=== PATIENT | male | born 1970 | race Caucasian/White ===

== ENCOUNTER 2018-12-08 21:25 | Emergency (ER) | payer OTHER ==
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
[2018-12-08] MEDS ORDERED: Acetaminophen/HYDROcodone 325-10 MG Tab PO ONE (21:41)
[2018-12-08 22:22] LABS: ANION GAP 13.3; CHLORIDE,CL 109 mmol/L (101-111); SODIUM,NA 141 mmol/L (135-145)
== END 2018-12-08 23:00 | disposition home or self-care (01) ==
LOC: DL.ED 21:25
DX: S93.491A Sprain of other ligament of right ankle, initial encounter (principal); V23.4XXA Motorcycle driver injured in collision with car, pick-up truck or van in traffic accident, initial encounter
CPT/HCPCS: 36415; 73610; 80053; 85025; 99285; A9270

== ENCOUNTER 2019-04-29 23:34 | Emergency (ER) | payer OTHER ==
[2019-04-29] MEDS ORDERED: Albuterol 6.7 GM Inhaler INH ONE (23:35)
[2019-04-30 01:24] VITALS: BP 127/73; PULSE 82
--- NOTE | 2019-04-30 02:15 | EDM.PDOC ---
ED HPI GENERAL MEDICAL PROBLEM - General Chief Complaint: General Stated Complaint: FLU Time Seen by Provider: 04/30/19 02:12 Source of Information: Reports: Patient History Limitations: Reports: No Limitations - History of Present Illness INITIAL COMMENTS - FREE TEXT/NARRATIVE: Sx since . Generalized Pain Score (Numeric/FACES): 3 - Related Data Allergies Allergy/AdvReac Type Severity Reaction Status Date / Time No Known Allergies Allergy Verified 04/30/19 01:23 Home Meds: Home Meds . [No Known Home Meds] 05/10/16 [History] Past Medical History - Past Health History Medical/Surgical History: Denies Medical/Surgical History HEENT History: Reports: Hard of Hearing, Impaired Vision Other HEENT History: states near sighted, wears glasses at times Cardiovascular History: Reports: None Respiratory History: Reports: None Gastrointestinal History: Reports: None Genitourinary History: Reports: None Musculoskeletal History: Reports: None Neurological History: Reports: None Psychiatric History: Reports: None Endocrine/Metabolic History: Reports: None Other Endocrine/Metabolic History: has had hypoglycemia at times Hematologic History: Reports: None Immunologic History: Reports: None Oncologic (Cancer) History: Reports: None Dermatologic History: Reports: None - Infectious Disease History Infectious Disease History: Reports: None - Past Surgical History Head Surgeries/Procedures: Reports: None Social & Family History - Family History Family Medical History: Noncontributory - Tobacco Use Smoking Status *Q: Never Smoker Second Hand Smoke Exposure: No - Caffeine Use Caffeine Use: Reports: Coffee - Recreational Drug Use Recreational Drug Use: No - Living Situation & Occupation Living situation: Reports: with Significant Other Occupation: Employed ED ROS GENERAL - Review of Systems Review Of Systems: Comprehensive ROS is negative, except as noted in HPI. ED EXAM, GENERAL - Physical Exam Exam: See Below Exam Limited By: No Limitations General Appearance: Alert, WD/WN, No Apparent Distress Ears: Hearing Grossly Normal Throat/Mouth: Normal Voice, No Airway Compromise Head: Atraumatic Neck: Non-Tender, Full Range of Motion Respiratory/Chest: No Respiratory Distress, No Accessory Muscle Use, Rhonchi. No: Decreased Breath Sounds Cardiovascular: Regular Rate, Rhythm GI/Abdominal: Soft, Non-Tender Neurological: Alert, Oriented, Normal Cognition, Normal Gait, No Motor/Sensory Deficits Psychiatric: Normal Affect, Normal Mood Skin Exam: Warm, Dry, Normal Color Lymphatic: No Adenopathy Course - Vital Signs Last Recorded V/S: Last Vital Signs Temp 37.0 C 04/30/19 01:19 Pulse 82 04/30/19 01:19 Resp 20 04/30/19 01:19 BP 127/73 04/30/19 01:19 Pulse Ox 100 04/30/19 01:19 - Re-Assessments/Exams Free Text/Narrative Re-Assessment/Exam: 04/30/19 02:13 results discussed with pt. Departure - Departure Time of Disposition: 02:13 Disposition: Home, Self-Care 01 Condition: Good Clinical Impression: Bronchitis, Flu syndrome - Discharge Information Instructions: Acute Bronchitis, Adult, [id number] Additional Instructions: 1) sleep as much as possible 2) drink lots of hot liquids 3) take tylenol or motrin for fever and body aches 4) follow up at clinic rx togo; albuterol inhaler 1-2 puff qid prn Sepsis Event Note - Evaluation Sepsis Screening Result: No Definite Risk - Focused Exam Vital Signs: Vital Signs Temp Pulse Resp BP Pulse Ox 04/30/19 01:19 37.0 C 82 20 127/73 100 Date Exam was Performed: 04/30/19 Time Exam was Performed: 02:12
[2019-04-30] MEDS ORDERED: Albuterol 6.7 GM Inhaler INH ONE (02:17)
== END 2019-04-30 02:22 | disposition home or self-care (01) ==
LOC: DL.ED 23:34
DX: J11.1 Influenza due to unidentified influenza virus with other respiratory manifestations (principal); J40 Bronchitis, not specified as acute or chronic
CPT/HCPCS: 87804; 99283; A9270

== ENCOUNTER 2019-05-15 19:26 | Emergency (ER) | payer OTHER ==
[2019-05-15 19:38] VITALS: BP 123/83; PULSE 70
--- NOTE | 2019-05-15 19:56 | EDM.PDOC ---
ED HPI GENERAL MEDICAL PROBLEM - General Chief Complaint: Respiratory Problem Time Seen by Provider: 05/15/19 19:47 Source of Information: Reports: Patient History Limitations: Reports: No Limitations - History of Present Illness INITIAL COMMENTS - FREE TEXT/NARRATIVE: Cough x 2-3 weeks, Unsure if fever Cough dry now, previously loose. Some chills. No hx asthma, Appetite good. No nausea or vomiting. - Related Data Allergies Allergy/AdvReac Type Severity Reaction Status Date / Time No Known Allergies Allergy Verified 05/15/19 19:35 Home Meds: Home Meds . [No Known Home Meds] 05/10/16 [History] Past Medical History - Past Health History Medical/Surgical History: Denies Medical/Surgical History HEENT History: Reports: Hard of Hearing, Impaired Vision Other HEENT History: states near sighted, wears glasses at times Cardiovascular History: Reports: None Respiratory History: Reports: None Gastrointestinal History: Reports: None Genitourinary History: Reports: None Musculoskeletal History: Reports: None Neurological History: Reports: None Psychiatric History: Reports: None Endocrine/Metabolic History: Reports: None Other Endocrine/Metabolic History: has had hypoglycemia at times Hematologic History: Reports: None Immunologic History: Reports: None Oncologic (Cancer) History: Reports: None Dermatologic History: Reports: None - Infectious Disease History Infectious Disease History: Reports: None - Past Surgical History Head Surgeries/Procedures: Reports: None Social & Family History - Family History Family Medical History: Noncontributory - Tobacco Use Smoking Status *Q: Never Smoker Second Hand Smoke Exposure: No - Caffeine Use Caffeine Use: Reports: Coffee - Recreational Drug Use Recreational Drug Use: No - Living Situation & Occupation Living situation: Reports: with Significant Other Occupation: Employed ED ROS GENERAL - Review of Systems Review Of Systems: Comprehensive ROS is negative, except as noted in HPI. ED EXAM, GENERAL - Physical Exam Exam: See Below Exam Limited By: No Limitations General Appearance: Alert, No Apparent Distress Eye Exam: Bilateral Eye: EOMI Ears: Normal External Exam, Normal Canal, Hearing Grossly Normal, Normal TMs Nose: Normal Inspection Throat/Mouth: Normal Inspection, Normal Voice, No Airway Compromise Head: Atraumatic, Normocephalic Neck: Normal Inspection, Full Range of Motion. No: Lymphadenopathy (L), Lymphadenopathy (R) Respiratory/Chest: No Respiratory Distress, Lungs Clear, Normal Breath Sounds. No: Crackles, Rales, Rhonchi, Wheezing, Accessory Muscle Use Cardiovascular: Normal Peripheral Pulses, Regular Rate, Rhythm GI/Abdominal: Normal Bowel Sounds Back Exam: Normal Inspection, Full Range of Motion Extremities: Normal Range of Motion Neurological: Alert, Oriented, Normal Cognition Psychiatric: Normal Affect Skin Exam: Warm, Dry, Intact, Normal Color Course - Vital Signs Last Recorded V/S: Last Vital Signs Temp 98.5 F 05/15/19 19:32 Pulse 70 05/15/19 19:32 Resp 18 05/15/19 19:32 BP 123/83 05/15/19 19:32 Pulse Ox 98 05/15/19 19:32 - Orders/Labs/Meds Meds: Medications Discontinued Medications Generic Name Dose Route Start Last Admin Trade Name Yane PRN Reason Stop Dose Admin Benzonatate 200 mg 05/15/19 19:59 05/15/19 20:17 Tessalon Perles PO 05/15/19 20:00 200 mg ONETIME ONE Administration Departure - Departure Time of Disposition: 20:00 Disposition: Home, Self-Care 01 Condition: Good Clinical Impression: Bronchitis - Discharge Information *PRESCRIPTION DRUG MONITORING PROGRAM REVIEWED*: No *COPY OF PRESCRIPTION DRUG MONITORING REPORT IN PATIENT MANJU: No Instructions: Acute Bronchitis, Adult, [id number] Referrals: PCP,None [Primary Care Provider] - Forms: ED Department Discharge Additional Instructions: Muccinex per package label to aid in loosening secretions increase fluids tessalon perles 200mg every 8 hours as needed for cough follow up clinic 2 weeks if not improving. Sepsis Event Note - Evaluation Sepsis Screening Result: No Definite Risk - Focused Exam Date Exam was Performed: 05/17/19 Time Exam was Performed: 22:31
[2019-05-15] MEDS ORDERED: Benzonatate 100 MG Cap PO ONE (19:59)
== END 2019-05-15 20:18 | disposition home or self-care (01) ==
LOC: DL.ED 19:26
DX: J40 Bronchitis, not specified as acute or chronic (principal)
CPT/HCPCS: 99283; A9270

== ENCOUNTER 2019-06-22 10:26 | Emergency (ER) | payer OTHER ==
[2019-06-22] MEDS ORDERED: Acetaminophen/HYDROcodone 325-10 MG Tab PO ONE (10:49)
[2019-06-22] MEDS ORDERED: Albuterol/Ipratropium 3.0-0.5 MG/3 ML Neb Soln NEB ONE (10:50)
--- NOTE | 2019-06-22 10:57 | EDM.PDOC ---
<Skye Villanueva - Last Filed: 06/22/19 11:40> ED HPI GENERAL MEDICAL PROBLEM - General Chief Complaint: Respiratory Problem Stated Complaint: COUGHING/PULLED SOMETHING IN STOMACH Time Seen by Provider: 06/22/19 10:45 Source of Information: Reports: Patient History Limitations: Reports: No Limitations - History of Present Illness INITIAL COMMENTS - FREE TEXT/NARRATIVE: Patient presents to the ED by private vehicle with concerns of productive cough and recent episode of sharp right sided chest pain after an episode of severe coughing. The patient reports 2 months of cough and nasal drainage. He denies sore throat, fevers, chills, body aches. The patient has treated symptoms with OTC cold medications. He denies any history of cardiovascular or pulmonary disease. He denies a history of smoking. He admits to significant second hand smoke. Onset: Today Duration: Getting Worse Location: Reports: Chest (right sided) Quality: Reports: Sharp Improves with: Reports: None Worsens with: Reports: Breathing, Movement (coughing) Associated Symptoms: Reports: cough w sputum Treatments ACCOUNT SERVICES MANAGER: Reports: Other Medication(s) (OTC cold relief medications) Right Pain Score (Numeric/FACES): 9 - Related Data Allergies Allergy/AdvReac Type Severity Reaction Status Date / Time No Known Allergies Allergy Verified 06/22/19 10:39 Home Meds: Home Meds guaiFENesin [Robitussin] 20 ml PO Q6H 06/22/19 [History] Past Medical History - Past Health History Medical/Surgical History: Denies Medical/Surgical History HEENT History: Reports: Hard of Hearing, Impaired Vision Other HEENT History: states near sighted, wears glasses at times Cardiovascular History: Reports: None Respiratory History: Reports: None Gastrointestinal History: Reports: None Genitourinary History: Reports: None Musculoskeletal History: Reports: None Neurological History: Reports: None Psychiatric History: Reports: None Endocrine/Metabolic History: Reports: None Other Endocrine/Metabolic History: has had hypoglycemia at times Hematologic History: Reports: None Immunologic History: Reports: None Oncologic (Cancer) History: Reports: None Dermatologic History: Reports: None - Infectious Disease History Infectious Disease History: Reports: None - Past Surgical History Head Surgeries/Procedures: Reports: None Social & Family History - Family History Family Medical History: Noncontributory - Tobacco Use Smoking Status *Q: Never Smoker - Caffeine Use Caffeine Use: Reports: Coffee - Recreational Drug Use Recreational Drug Use: Yes Drug Use in Last 12 Months: No Other Recreational Drug Type: Hx smoking marijuana decades ago. (per pt) - Living Situation & Occupation Living situation: Reports: with Significant Other Occupation: Employed ED ROS GENERAL - Review of Systems Review Of Systems: See Below Constitutional: Denies: Fever, Chills Respiratory: Reports: Shortness of Breath, Wheezing, Cough, Sputum. Denies: Hemoptysis Cardiovascular: Reports: Chest Pain. Denies: Lightheadedness, Palpitations GI/Abdominal: Denies: Abdominal Pain, Constipation, Diarrhea, Hematemesis, Hematochezia, Nausea, Vomiting : Denies: Flank Pain Skin: Denies: Rash ED EXAM, GENERAL - Physical Exam Exam: See Below Exam Limited By: No Limitations General Appearance: Alert, Moderate Distress Ear Exam: Bilateral Ear: Auricle Normal, Canal Normal, TM normal Nose: Normal Inspection, Normal Mucosa Throat/Mouth: Normal Inspection Head: Atraumatic, Normocephalic Respiratory/Chest: Wheezing, Splinting, Other (tender to palpation over right lateral 7-10 ribs). No: Decreased Breath Sounds Cardiovascular: Normal Peripheral Pulses, Regular Rate, Rhythm, No Murmur Peripheral Pulses: 2+: Carotid (L), Carotid (R) GI/Abdominal: Normal Bowel Sounds, Soft, Non-Tender, No Distention Back Exam: No: CVA Tenderness (L), CVA Tenderness (R), Paraspinal Tenderness, Vertebral Tenderness Neurological: Alert, Oriented Psychiatric: Anxious Skin Exam: Warm, Dry, Intact Course - Vital Signs Last Recorded V/S: Last Vital Signs Temp 98.2 F 06/22/19 10:32 Pulse 70 06/22/19 10:59 Resp 28 H 06/22/19 10:32 BP 124/89 06/22/19 10:32 Pulse Ox 100 06/22/19 10:32 - Orders/Labs/Meds Orders: Active Orders 24 hr Category Date Time Status RT Aerosol Therapy [RC] ASDIRECTED Care 06/22/19 10:50 Active Chest 2V [CR] Stat Exams 06/22/19 10:49 Taken INFLUENZA A+B AG SCREEN [RM] Stat Lab 06/22/19 11:11 Ordered Labs: Laboratory Tests 06/22/19 06/22/19 06/22/19 Range/Units 11:02 11:02 11:02 WBC 7.6 (5.0-10.0) 10^3/uL RBC 4.61 (4.6-6.2) 10^6/uL Hgb 11.1 L (14.0-18.0) g/dL Hct 35.3 L (40.0-54.0) % MCV 76.6 L (80-100) fL MCH 24.1 L (27.0-34.0) pg MCHC 31.4 L (33.0-35.0) g/dL Plt Count 317 (150-450) 10^3/uL Neut % (Auto) 69.9 (42.2-75.2) % Lymph % (Auto) 15.1 L (20.5-50.1) % [place] % (Auto) 10.6 H (2-8) % Eos % (Auto) 4.0 H (1.0-3.0) % Baso % (Auto) 0.4 (0.0-1.0) % D-Dimer, Quantitative 239 (0-400) ng/mL Sodium 139 (135-145) mmol/L Potassium 3.9 (3.6-5.0) mmol/L Chloride 107 (101-111) mmol/L Carbon Dioxide 23.0 (21.0-31.0) mmol/L Anion Gap 12.9 BUN 8 (7-18) mg/dL Creatinine 0.7 (0.6-1.3) mg/dL Est Cr Clr Drug Dosing 150.05 mL/min Estimated GFR (MDRD) > 60 BUN/Creatinine Ratio 11.42 Glucose 85 (74-105) mg/dL Calcium 8.6 (8.4-10.2) mg/dl Total Bilirubin 0.4 (0.2-1.0) mg/dL AST 18 (10-42) IU/L ALT 12 (10-60) IU/L Alkaline Phosphatase 53 (42-121) IU/L Total Protein 6.8 (6.7-8.2) g/dl Albumin 3.4 (3.2-5.5) g/dl Globulin 3.4 Albumin/Globulin Ratio 1.00 Meds: Medications Discontinued Medications Generic Name Dose Route Start Last Admin Trade Name Freq PRN Reason Stop Dose Admin Hydrocodone Bitart/Acetaminophen 1 tab 06/22/19 10:49 06/22/19 11:09 [place] 325-10 Mg PO 06/22/19 10:50 1 tab ONETIME ONE Administration Albuterol/Ipratropium 3 ml 06/22/19 10:50 06/22/19 10:59 Duoneb 3.0-0.5 Mg/3 Ml NEB 06/22/19 10:51 3 ml ONETIME ONE Administration - Radiology Interpretation Free Text/Narrative:: Chest XR reveals no acute cardiopulmonary findings. Departure - Departure Time of Disposition: 11:41 Disposition: Home, Self-Care 01 Condition: Good Clinical Impression: Bronchitis, Costochondral chest pain Reactive airway disease with acute exacerbation Qualifiers: Asthma severity: moderate Asthma persistence: persistent Qualified Code(s): J45.41 - Moderate persistent asthma with (acute) exacerbation - Discharge Information *PRESCRIPTION DRUG MONITORING PROGRAM REVIEWED*: Not Applicable *COPY OF PRESCRIPTION DRUG MONITORING REPORT IN PATIENT MANJU: Not Applicable Instructions: Costochondritis, [id number], Metered Dose Inhaler (No Spacer Used), Upper Respiratory Infection, Adult, [id number] Forms: ED Department Discharge Additional Instructions: Rx: albuterol 2 puffs every 4 hours as needed for wheezing/cough Tessalon Perles as needed for cough Prednisone 1 tablet daily for 5 days. Take this medication prior to noon, and with food Zithromax, take as directed for 5 days Adequate rest, hydration Sepsis Event Note - Evaluation Sepsis Screening Result: No Definite Risk - Focused Exam Vital Signs: Vital Signs Temp Pulse Resp BP Pulse Ox 06/22/19 10:59 70 06/22/19 10:32 98.2 F 87 28 H 124/89 100 Date Exam was Performed: 06/22/19 Time Exam was Performed: 11:40 - My Orders Last 24 Hours: My Active Orders 06/22/19 10:49 Chest 2V [CR] Stat 06/22/19 10:50 RT Aerosol Therapy [RC] ASDIRECTED - Assessment/Plan Last 24 Hours: My Active Orders 06/22/19 10:49 Chest 2V [CR] Stat 06/22/19 10:50 RT Aerosol Therapy [RC] ASDIRECTED <Joaquín Alicia - Last Filed: 06/22/19 11:48> Course - Re-Assessments/Exams Free Text/Narrative Re-Assessment/Exam: 06/22/19 11:47 I personally performed or re-performed the physical examination and medical decision making. I have verified all student documentation or findings, including history, physical exam and/or medical decision making. Sepsis Event Note - Focused Exam Date Exam was Performed: 06/22/19 Time Exam was Performed: 11:47
[2019-06-22 11:28] LABS: ANION GAP 12.9; CHLORIDE,CL 107 mmol/L (101-111); SODIUM,NA 139 mmol/L (135-145)
[2019-06-22 11:56] VITALS: BP 113/75; PULSE 68
--- NOTE | 2019-06-22 12:13 | CR ---
EXAMINATION: Chest 2V SEX: Male AGE: 48 years CLINICAL HISTORY: 48-year-old male with cough and right chest pain. Comparison exam 17 March 2015. INTERPRETATION: 1. Chronic mild accentuation central lung markings. 2. No new lung mass, hilar lymphadenopathy or focal lobar pneumonia (compared to 17 March 2015). 3. Normal cardiac silhouette and bony thorax. 4. No pulmonary vascular congestion, cephalization of flow, alveolar edema or dependent pleural effusion. 5. No atelectasis/collapse. 6. No pneumothorax or pneumomediastinum. Midline tracheal bronchial airway unremarkable. No foreign bodies. CONCLUSION: Mild bronchial inflammation. No new cardiopulmonary abnormality since February 2015 films.
== END 2019-06-22 11:56 | disposition home or self-care (01) ==
LOC: DL.ED 10:26
DX: J45.41 Moderate persistent asthma with (acute) exacerbation (principal)
CPT/HCPCS: 36415; 71046; 80053; 85025; 85379; 94640; 99285; A9270; J7620-GY

== ENCOUNTER 2019-10-27 13:55 | Emergency (ER) | payer OTHER ==
[2019-10-27 14:25] VITALS: BP 129/82; PULSE 56
[2019-10-27] MEDS ORDERED: Sodium Chloride 0.9% 1,000 ML IV ONE (14:56)
--- NOTE | 2019-10-27 15:01 | EDM.PDOC ---
ED HPI GENERAL MEDICAL PROBLEM - General Chief Complaint: General Stated Complaint: VERTIGO, WEAKNESS, ARM PAIN 2 DAYS AGO Time Seen by Provider: 10/27/19 14:50 Source of Information: Reports: Patient History Limitations: Reports: No Limitations - History of Present Illness INITIAL COMMENTS - FREE TEXT/NARRATIVE: This 49 yo male patient reports to the ED with dizziness and malaise. The patient reports his symptoms started today and have continued throughout the day. The patient reports he has been eating and drinking, but has had a decreased appetite today. The patient reports increased dizziness when he gets up or walks around. The patient denies any nausea, vomiting, diarrhea, cough, abdominal pain, fever and chills. Onset: Today Duration: Constant Location: Reports: Generalized Quality: Reports: Other Severity: Moderate Improves with: Reports: None Worsens with: Reports: None Context: Reports: Other Associated Symptoms: Reports: Weakness - Related Data Allergies Allergy/AdvReac Type Severity Reaction Status Date / Time No Known Allergies Allergy Verified 10/27/19 14:17 Home Meds: Home Meds Acetaminophen [Tylenol] 2 mg PO ASDIRECTED PRN 10/27/19 [History] Ibuprofen 400 mg PO ASDIRECTED PRN 10/27/19 [History] Past Medical History - Past Health History Medical/Surgical History: Denies Medical/Surgical History HEENT History: Reports: Hard of Hearing, Impaired Vision Other HEENT History: states near sighted, wears glasses at times Cardiovascular History: Reports: None Respiratory History: Reports: None Gastrointestinal History: Reports: None Genitourinary History: Reports: None Musculoskeletal History: Reports: None Neurological History: Reports: None Psychiatric History: Reports: None Endocrine/Metabolic History: Reports: None Other Endocrine/Metabolic History: has had hypoglycemia at times Hematologic History: Reports: None Immunologic History: Reports: None Oncologic (Cancer) History: Reports: None Dermatologic History: Reports: None - Infectious Disease History Infectious Disease History: Reports: None - Past Surgical History Head Surgeries/Procedures: Reports: None Social & Family History - Family History Family Medical History: Noncontributory - Caffeine Use Caffeine Use: Reports: Coffee - Living Situation & Occupation Living situation: Reports: with Significant Other Occupation: Employed ED ROS GENERAL - Review of Systems Review Of Systems: Comprehensive ROS is negative, except as noted in HPI. ED EXAM, GENERAL - Physical Exam Exam: See Below Exam Limited By: No Limitations General Appearance: Alert, WD/WN, Mild Distress Eye Exam: Bilateral Eye: EOMI, Normal Inspection, PERRL Ears: Normal External Exam, Normal Canal, Hearing Grossly Normal, Normal TMs Nose: Normal Inspection, Normal Mucosa, No Blood Throat/Mouth: Normal Inspection, Normal Lips, Normal Teeth, Normal Gums, Normal Oropharynx, Normal Voice, No Airway Compromise Head: Atraumatic, Normocephalic Neck: Normal Inspection, Supple, Non-Tender, Full Range of Motion Respiratory/Chest: No Respiratory Distress, Lungs Clear, Normal Breath Sounds, No Accessory Muscle Use, Chest Non-Tender Cardiovascular: Normal Peripheral Pulses, Regular Rate, Rhythm, No Edema, No Gallop, No JVD, No Murmur, No Rub GI/Abdominal: Normal Bowel Sounds, Soft, Non-Tender, No Organomegaly, No Distention, No Abnormal Bruit, No Mass (Male) Exam: Deferred Rectal (Males) Exam: Deferred Back Exam: Normal Inspection, Full Range of Motion, NT Extremities: Normal Inspection, Normal Range of Motion, Non-Tender, Normal Capillary Refill, No Pedal Edema Neurological: Alert, Oriented, CN II-XII Intact, Normal Cognition, Normal Gait, Normal Reflexes, No Motor/Sensory Deficits Psychiatric: Normal Affect, Normal Mood Skin Exam: Warm, Dry, Intact, Normal Color, No Rash Lymphatic: No Adenopathy Course - Vital Signs Last Recorded V/S: Last Vital Signs Temp 36.6 C 10/27/19 14:23 Pulse 56 L 10/27/19 14:23 Resp 16 10/27/19 14:23 BP 129/82 10/27/19 14:23 Pulse Ox 98 10/27/19 14:23 - Orders/Labs/Meds Orders: Active Orders 24 hr Category Date Time Status EKG Documentation Completion [RC] STAT Care 10/27/19 14:57 Active Labs: Laboratory Tests 10/27/19 10/27/19 10/27/19 Range/Units 15:26 15:26 15:32 WBC 6.2 (5.0-10.0) 10^3/uL RBC 4.67 (4.6-6.2) 10^6/uL Hgb 12.2 L (14.0-18.0) g/dL Hct 37.6 L (40.0-54.0) % MCV 80.5 D (80-100) fL MCH 26.1 L (27.0-34.0) pg MCHC 32.4 L (33.0-35.0) g/dL Plt Count 240 D (150-450) 10^3/uL Neut % (Auto) 59.8 (42.2-75.2) % Lymph % (Auto) 22.3 (20.5-50.1) % [place] % (Auto) 11.2 H (2-8) % Eos % (Auto) 6.1 H (1.0-3.0) % Baso % (Auto) 0.6 (0.0-1.0) % Sodium (136-145) mmol/L Potassium (3.5-5.1) mmol/L Chloride (98-107) mmol/L Carbon Dioxide (21-32) mmol/L Anion Gap (7-13) mEq/L BUN (7-18) mg/dL Creatinine (0.70-1.30) mg/dL Est Cr Clr Drug Dosing mL/min Estimated GFR (MDRD) BUN/Creatinine Ratio (No establ ref range) Glucose (74-99) mg/dL Calcium (8.5-10.1) mg/dL Total Bilirubin (0.2-1.0) mg/dL AST (15-37) U/L ALT (16-63) U/L Alkaline Phosphatase (46-116) U/L Troponin I (0.000-0.056) ng/mL Total Protein (6.4-8.2) g/dL Albumin (3.4-5.0) g/dL Globulin Albumin/Globulin Ratio Urine Color Yellow (YELLOW) Urine Appearance Clear (CLEAR) Urine pH 6.5 (5.0-9.0) Ur Specific [place] 1.020 (1.005-1.030) Urine Protein Negative (NEGATIVE) Urine Glucose (UA) Negative (NEGATIVE) Urine Ketones Negative (NEGATIVE) Urine Occult Blood Negative (NEGATIVE) Urine Nitrite Negative (NEGATIVE) Urine Bilirubin Negative (NEGATIVE) Urine Urobilinogen 0.2 (0.2-1.0) mg/dL Ur Leukocyte Esterase Negative (NEGATIVE) Urine Opiates Screen Negative (NEGATIVE) Ur Oxycodone Screen Negative (NEGATIVE) Urine Methadone Screen Negative (NEGATIVE) Ur Barbiturates Screen Negative (NEGATIVE) U Tricyclic Antidepress Negative (NEGATIVE) Ur Phencyclidine Scrn Negative (NEGATIVE) Ur Amphetamine Screen Negative (NEGATIVE) U Methamphetamines Scrn Negative (NEGATIVE) Urine MDMA Screen Negative (NEGATIVE) U Benzodiazepines Scrn Negative (NEGATIVE) Urine Cocaine Screen Negative (NEGATIVE) U Marijuana (THC) Screen Negative (NEGATIVE) 10/27/19 Range/Units 15:32 WBC (5.0-10.0) 10^3/uL RBC (4.6-6.2) 10^6/uL Hgb (14.0-18.0) g/dL Hct (40.0-54.0) % MCV (80-100) fL MCH (27.0-34.0) pg MCHC (33.0-35.0) g/dL Plt Count (150-450) 10^3/uL Neut % (Auto) (42.2-75.2) % Lymph % (Auto) (20.5-50.1) % [place] % (Auto) (2-8) % Eos % (Auto) (1.0-3.0) % Baso % (Auto) (0.0-1.0) % Sodium 141 (136-145) mmol/L Potassium 3.6 (3.5-5.1) mmol/L Chloride 105 (98-107) mmol/L Carbon Dioxide 26 (21-32) mmol/L Anion Gap 13.6 H (7-13) mEq/L BUN 13 (7-18) mg/dL Creatinine 0.97 (0.70-1.30) mg/dL Est Cr Clr Drug Dosing 107.10 mL/min Estimated GFR (MDRD) > 60 BUN/Creatinine Ratio 13.4 (No establ ref range) Glucose 96 (74-99) mg/dL Calcium 8.1 L (8.5-10.1) mg/dL Total Bilirubin 0.2 (0.2-1.0) mg/dL AST 14 L (15-37) U/L ALT 24 (16-63) U/L Alkaline Phosphatase 66 (46-116) U/L Troponin I < 0.017 (0.000-0.056) ng/mL Total Protein 6.6 (6.4-8.2) g/dL Albumin 3.3 L (3.4-5.0) g/dL Globulin 3.3 Albumin/Globulin Ratio 1.00 Urine Color (YELLOW) Urine Appearance (CLEAR) Urine pH (5.0-9.0) Ur Specific [place] (1.005-1.030) Urine Protein (NEGATIVE) Urine Glucose (UA) (NEGATIVE) Urine Ketones (NEGATIVE) Urine Occult Blood (NEGATIVE) Urine Nitrite (NEGATIVE) Urine Bilirubin (NEGATIVE) Urine Urobilinogen (0.2-1.0) mg/dL Ur Leukocyte Esterase (NEGATIVE) Urine Opiates Screen (NEGATIVE) Ur Oxycodone Screen (NEGATIVE) Urine Methadone Screen (NEGATIVE) Ur Barbiturates Screen (NEGATIVE) U Tricyclic Antidepress (NEGATIVE) Ur Phencyclidine Scrn (NEGATIVE) Ur Amphetamine Screen (NEGATIVE) U Methamphetamines Scrn (NEGATIVE) Urine MDMA Screen (NEGATIVE) U Benzodiazepines Scrn (NEGATIVE) Urine Cocaine Screen (NEGATIVE) U Marijuana (THC) Screen (NEGATIVE) Meds: Medications Discontinued Medications Generic Name Dose Route Start Last Admin Trade Name Freq PRN Reason Stop Dose Admin Sodium Chloride 1,000 mls @ 999 mls/hr 10/27/19 14:56 10/27/19 15:26 Normal Saline IV 10/27/19 15:56 999 mls/hr .BOLUS ONE Administration Departure - Departure Time of Disposition: 16:51 Disposition: Home, Self-Care 01 Condition: Fair Clinical Impression: Dehydration - Discharge Information *PRESCRIPTION DRUG MONITORING PROGRAM REVIEWED*: Not Applicable *COPY OF PRESCRIPTION DRUG MONITORING REPORT IN PATIENT MANJU: Not Applicable Instructions: Dehydration, Adult, [id number] Forms: ED Department Discharge Care Plan Goals: The patient was advised of the examination, lab, and EKG results during the visit. The patient was given a liter of IV fluids while in the ED. The patient was encouraged to increase his oral fluid intake. If the patient has any additional symptoms or concerns, the patient should either return to the emergency department or visit his primary care facility. Sepsis Event Note (ED) - Evaluation Sepsis Screening Result: No Definite Risk - Focused Exam Vital Signs: Vital Signs Temp Pulse Resp BP Pulse Ox 10/27/19 14:23 36.6 C 56 L 16 129/82 98 - My Orders Last 24 Hours: My Active Orders 10/27/19 14:57 EKG Documentation Completion [RC] STAT - Assessment/Plan Last 24 Hours: My Active Orders 10/27/19 14:57 EKG Documentation Completion [RC] STAT
[2019-10-27 16:26] LABS: ANION GAP 13.6 mEq/L (7-13); CHLORIDE,CL 105 mmol/L (98-107); SODIUM,NA 141 mmol/L (136-145)
== END 2019-10-27 17:00 | disposition home or self-care (01) ==
LOC: DL.ED 13:55
DX: E86.0 Dehydration (principal)
CPT/HCPCS: 36415; 80053; 80305; 81003; 82962; 84484; 85025; 93005; 96360; 99285; J7030

== ENCOUNTER 2020-02-17 16:40 | Emergency (ER) | payer OTHER ==
[2020-02-17 17:00] VITALS: BP 123/67; PULSE 60
--- NOTE | 2020-02-17 17:38 | EDM.PDOC ---
ED HPI GENERAL MEDICAL PROBLEM - General Chief Complaint: Headache Stated Complaint: SEEING BLACK SPOTS, THROBBING PAIN IN HEAD ON RIGHT Time Seen by Provider: 02/17/20 17:38 Source of Information: Reports: Patient, Old Records, RN, RN Notes Reviewed History Limitations: Reports: No Limitations - History of Present Illness INITIAL COMMENTS - FREE TEXT/NARRATIVE: Pt presents to ER from home by POV with c/o waking with a "tension-like headache" this morning. He states he did not feel right most of the day, then the headache moved to the right side of his head and began throbbing. He began to feel a little nauseated, the light hurt his eyes, and he began to have black spots and bars in his vision on both eyes. Denies eye pain, temporal pain, vomiting, fever, or neck pain. He has history of migraines but usually does not have the spots. He rates the headache pain 7/10. Onset: Today Duration: Constant, Waxing/Waning Location: Reports: Head Quality: Reports: Ache, Same as Previous Episode, Throbbing Severity: Severe Improves with: Reports: None Worsens with: Reports: Other (seeing light) Associated Symptoms: Reports: No Other Symptoms Treatments [employer]ENTICE: Reports: Acetaminophen, NSAIDS - Related Data Allergies Allergy/AdvReac Type Severity Reaction Status Date / Time No Known Allergies Allergy Verified 02/17/20 16:57 Home Meds: Home Meds Acetaminophen [Tylenol] 2 mg PO ASDIRECTED PRN 10/27/19 [History] Ibuprofen 400 mg PO ASDIRECTED PRN 10/27/19 [History] Past Medical History HEENT History: Reports: Hard of Hearing, Impaired Vision Other HEENT History: states near sighted, wears glasses at times Cardiovascular History: Reports: None Respiratory History: Reports: None Gastrointestinal History: Reports: None Genitourinary History: Reports: None Musculoskeletal History: Reports: None Neurological History: Reports: Migraines Psychiatric History: Reports: None Endocrine/Metabolic History: Reports: None Other Endocrine/Metabolic History: has had hypoglycemia at times Hematologic History: Reports: None Immunologic History: Reports: None Oncologic (Cancer) History: Reports: None Dermatologic History: Reports: None - Infectious Disease History Infectious Disease History: Reports: None - Past Surgical History Head Surgeries/Procedures: Reports: None Social & Family History - Family History Family Medical History: Noncontributory - Tobacco Use Tobacco Use Status *Q: Never Tobacco User Second Hand Smoke Exposure: No - Caffeine Use Caffeine Use: Reports: Soda - Recreational Drug Use Recreational Drug Use: No - Living Situation & Occupation Living situation: Reports: with Significant Other Occupation: Employed ED ROS GENERAL - Review of Systems Review Of Systems: Comprehensive ROS is negative, except as noted in HPI. ED EXAM, GENERAL - Physical Exam Exam: See Below Exam Limited By: No Limitations General Appearance: Alert, WD/WN, No Apparent Distress Eye Exam: Bilateral Eye: EOMI, Normal Inspection, PERRL Nose: Normal Inspection, Normal Mucosa, No Blood Throat/Mouth: Normal Inspection, Normal Lips, Normal Teeth, Normal Gums, Normal Oropharynx, Normal Voice, No Airway Compromise Head: Atraumatic, Normocephalic Neck: Normal Inspection, Supple, Non-Tender, Full Range of Motion Respiratory/Chest: No Respiratory Distress, Lungs Clear, Normal Breath Sounds, No Accessory Muscle Use, Chest Non-Tender Cardiovascular: Regular Rate, Rhythm Neurological: Alert, Oriented, CN II-XII Intact, Normal Cognition, Normal Gait, No Motor/Sensory Deficits Psychiatric: Normal Affect, Normal Mood Skin Exam: Warm, Dry, Intact, Normal Color, No Rash Course - Vital Signs Last Recorded V/S: Last Vital Signs Temp 97.5 F 02/17/20 16:57 Pulse 60 02/17/20 16:57 Resp 16 02/17/20 16:57 BP 123/67 02/17/20 16:57 Pulse Ox 100 02/17/20 16:57 - Orders/Labs/Meds Labs: Laboratory Tests 02/17/20 02/17/20 Range/Units 17:57 17:57 WBC 7.2 (5.0-10.0) 10^3/uL RBC 4.84 (4.6-6.2) 10^6/uL Hgb 13.3 L (14.0-18.0) g/dL Hct 40.1 (40.0-54.0) % MCV 82.9 (80-100) fL MCH 27.5 (27.0-34.0) pg MCHC 33.2 (33.0-35.0) g/dL Plt Count 226 (150-450) 10^3/uL Neut % (Auto) 61.6 (42.2-75.2) % Lymph % (Auto) 24.1 (20.5-50.1) % [place] % (Auto) 11.1 H (2-8) % Eos % (Auto) 2.9 (1.0-3.0) % Baso % (Auto) 0.3 (0.0-1.0) % Sodium 140 (136-145) mmol/L Potassium 3.9 (3.5-5.1) mmol/L Chloride 105 (98-107) mmol/L Carbon Dioxide 24 (21-32) mmol/L Anion Gap 14.9 H (7-13) mEq/L BUN 16 (7-18) mg/dL Creatinine 1.00 (0.70-1.30) mg/dL Est Cr Clr Drug Dosing 103.89 mL/min Estimated GFR (MDRD) > 60 BUN/Creatinine Ratio 16.0 (No establ ref range) Glucose 91 (74-99) mg/dL Calcium 8.2 L (8.5-10.1) mg/dL Total Bilirubin 0.2 (0.2-1.0) mg/dL AST 19 (15-37) U/L ALT 18 (16-63) U/L Alkaline Phosphatase 72 (46-116) U/L C-Reactive Protein 0.4 (0.0-0.9) mg/dL Total Protein 6.7 (6.4-8.2) g/dL Albumin 3.2 L (3.4-5.0) g/dL Globulin 3.5 Albumin/Globulin Ratio 0.91 Meds: Medications Discontinued Medications Generic Name Dose Route Start Last Admin Trade Name Freq PRN Reason Stop Dose Admin Diphenhydramine HCl 25 mg 02/17/20 17:48 02/17/20 18:01 Benadryl PO 02/17/20 17:49 25 mg ONETIME ONE Administration Ketorolac Tromethamine 60 mg 02/17/20 17:47 02/17/20 18:00 Toradol IM 02/17/20 17:48 60 mg ONETIME ONE Administration Metoclopramide HCl 20 mg 02/17/20 17:47 02/17/20 18:01 Reglan PO 02/17/20 17:48 20 mg ONETIME ONE Administration Departure - Departure Time of Disposition: 18:30 Disposition: Home, Self-Care 01 Condition: Good Clinical Impression: Migraine syndrome - Discharge Information *PRESCRIPTION DRUG MONITORING PROGRAM REVIEWED*: Not Applicable *COPY OF PRESCRIPTION DRUG MONITORING REPORT IN PATIENT MANJU: Not Applicable Instructions: Migraine Headache Forms: ED Department Discharge Additional Instructions: Rx: Reglan 10mg Rx: Benadryl 25mg Follow up in clinic next week for recheck if headache or eye problems persist. Follow up in eye clinic for an eye exam in the nest one to two weeks. Sepsis Event Note (ED) - Evaluation Sepsis Screening Result: No Definite Risk - Focused Exam Vital Signs: Vital Signs Temp Pulse Resp BP Pulse Ox 02/17/20 16:57 97.5 F 60 16 123/67 100
[2020-02-17] MEDS ORDERED: Ketorolac 30 MG/ML SDV IM ONE (17:47)
[2020-02-17] MEDS ORDERED: Metoclopramide 10 MG Tab PO ONE (17:47)
[2020-02-17] MEDS ORDERED: diphenhydrAMINE 25 MG Tab PO ONE (17:48)
[2020-02-17 18:24] LABS: ANION GAP 14.9 mEq/L (7-13); CHLORIDE,CL 105 mmol/L (98-107); SODIUM,NA 140 mmol/L (136-145)
== END 2020-02-17 18:33 | disposition home or self-care (01) ==
LOC: DL.ED 16:40
DX: G43.909 Migraine, unspecified, not intractable, without status migrainosus (principal); Z79.899 Other long term (current) drug therapy
CPT/HCPCS: 36415; 80053; 85025; 86140; 96372; 99283; A9270; J1885

== ENCOUNTER 2020-03-24 19:13 | Emergency (ER) | payer OTHER ==
[2020-03-24 19:36] VITALS: PULSE 83
--- NOTE | 2020-03-24 19:53 | EDM.PDOC ---
ED HPI GENERAL MEDICAL PROBLEM - General Chief Complaint: General Stated Complaint: KIDNEYS STONES, SWOLLEN TESTICLES, PAIN Time Seen by Provider: 03/24/20 19:40 Source of Information: Reports: Patient History Limitations: Reports: No Limitations - History of Present Illness INITIAL COMMENTS - FREE TEXT/NARRATIVE: This 49 yo male patient reports to the ED with swelling of the patient's right testicle. The patient reports his symptoms started last Tuesday. The patient reports he was seen in the [facility] on Tuesday and advised that he has a kidney stone. The patient reports his symptoms have continued over the weekend and his pain has gotten worse. The patient reports he is and has not has any sexual encounters with people other than his . The patient does report he was from his about 1 month ago and she did have a sexual encounter with another individual. Onset Date: 03/18/20 Duration: Constant, Getting Worse Location: Reports: Other Quality: Reports: Other Severity: Moderate Improves with: Reports: None Worsens with: Reports: None Context: Reports: Other Associated Symptoms: Reports: No Other Symptoms Treatments PCU RN: Reports: NSAIDS Right Groin Pain Score (Numeric/FACES): 4 - Related Data Allergies Allergy/AdvReac Type Severity Reaction Status Date / Time No Known Allergies Allergy Verified 03/24/20 19:36 Past Medical History - Past Health History Medical/Surgical History: Denies Medical/Surgical History HEENT History: Reports: Hard of Hearing, Impaired Vision Other HEENT History: states near sighted, wears glasses at times Cardiovascular History: Reports: None Respiratory History: Reports: None Gastrointestinal History: Reports: None Genitourinary History: Reports: None Musculoskeletal History: Reports: None Neurological History: Reports: Migraines Psychiatric History: Reports: None Endocrine/Metabolic History: Reports: None Other Endocrine/Metabolic History: has had hypoglycemia at times Hematologic History: Reports: None Immunologic History: Reports: None Oncologic (Cancer) History: Reports: None Dermatologic History: Reports: None - Infectious Disease History Infectious Disease History: Reports: None - Past Surgical History Head Surgeries/Procedures: Reports: None Social & Family History - Family History Family Medical History: No Pertinent Family History - Caffeine Use Caffeine Use: Reports: Soda - Living Situation & Occupation Living situation: Reports: with Significant Other Occupation: Employed ED ROS GENERAL - Review of Systems Review Of Systems: Comprehensive ROS is negative, except as noted in HPI. ED EXAM, GENERAL - Physical Exam Exam: See Below Exam Limited By: No Limitations General Appearance: Alert, WD/WN, Moderate Distress Eye Exam: Bilateral Eye: EOMI, Normal Inspection, PERRL Ears: Normal External Exam, Normal Canal, Hearing Grossly Normal, Normal TMs Nose: Normal Inspection, Normal Mucosa, No Blood Throat/Mouth: Normal Inspection, Normal Lips, Normal Teeth, Normal Gums, Normal Oropharynx, Normal Voice, No Airway Compromise Head: Atraumatic, Normocephalic Neck: Normal Inspection, Supple, Non-Tender, Full Range of Motion Respiratory/Chest: No Respiratory Distress, Lungs Clear, Normal Breath Sounds, No Accessory Muscle Use, Chest Non-Tender Cardiovascular: Normal Peripheral Pulses, Regular Rate, Rhythm, No Edema, No Gallop, No JVD, No Murmur, No Rub GI/Abdominal: Normal Bowel Sounds, Soft, No Organomegaly, No Distention, No Abnormal Bruit, No Mass, Tender (Male) Exam: No Hernia, Scrotum Tenderness (R), Testicular Tenderness (R) Rectal (Males) Exam: Deferred Back Exam: Normal Inspection, Full Range of Motion, NT Extremities: Normal Inspection, Normal Range of Motion, Non-Tender, Normal Capillary Refill, No Pedal Edema Neurological: Alert, Oriented, CN II-XII Intact, Normal Cognition, Normal Gait, Normal Reflexes, No Motor/Sensory Deficits Psychiatric: Normal Affect, Normal Mood Skin Exam: Warm, Dry, Intact, Normal Color, No Rash Lymphatic: No Adenopathy Course - Vital Signs Last Recorded V/S: Last Vital Signs Temp 36.3 C 03/24/20 19:28 Pulse 83 03/24/20 19:28 Resp 14 03/24/20 19:28 BP 126/87 03/24/20 19:56 Pulse Ox 100 03/24/20 19:28 - Orders/Labs/Meds Orders: Active Orders 24 hr Category Date Time Status CHLAMYDIA AND GONORRHEA BY TMA Stat Lab 03/24/20 20:05 Received CULTURE URINE [RM] Urgent Lab 03/24/20 20:06 Received Labs: Laboratory Tests 03/24/20 03/24/20 03/24/20 Range/Units 19:50 19:50 20:06 WBC 8.3 (5.0-10.0) 10^3/uL RBC 4.45 L (4.6-6.2) 10^6/uL Hgb 12.6 L (14.0-18.0) g/dL Hct 37.5 L (40.0-54.0) % MCV 84.3 (80-100) fL MCH 28.3 (27.0-34.0) pg MCHC 33.6 (33.0-35.0) g/dL Plt Count 285 (150-450) 10^3/uL Neut % (Auto) 69.4 (42.2-75.2) % Lymph % (Auto) 18.2 L (20.5-50.1) % [place] % (Auto) 10.0 H (2-8) % Eos % (Auto) 1.9 (1.0-3.0) % Baso % (Auto) 0.5 (0.0-1.0) % Sodium 138 (136-145) mmol/L Potassium 3.6 (3.5-5.1) mmol/L Chloride 105 (98-107) mmol/L Carbon Dioxide 23 (21-32) mmol/L Anion Gap 13.6 H (7-13) mEq/L BUN 13 (7-18) mg/dL Creatinine 0.90 (0.70-1.30) mg/dL Est Cr Clr Drug Dosing 115.44 mL/min Estimated GFR (MDRD) > 60 BUN/Creatinine Ratio 14.4 (No establ ref range) Glucose 85 (74-99) mg/dL Calcium 8.4 L (8.5-10.1) mg/dL Total Bilirubin 0.2 (0.2-1.0) mg/dL AST 15 (15-37) U/L ALT 22 (16-63) U/L Alkaline Phosphatase 81 (46-116) U/L Total Protein 7.2 (6.4-8.2) g/dL Albumin 3.4 (3.4-5.0) g/dL Globulin 3.8 Albumin/Globulin Ratio 0.9 Urine Color Yellow (YELLOW) Urine Appearance Cloudy (CLEAR) Urine pH 6.0 (5.0-9.0) Ur Specific [place] >= 1.030 (1.005-1.030) Urine Protein 100 H (NEGATIVE) Urine Glucose (UA) Negative (NEGATIVE) Urine Ketones Negative (NEGATIVE) Urine Occult Blood Trace-intact H (NEGATIVE) Urine Nitrite Negative (NEGATIVE) Urine Bilirubin Negative (NEGATIVE) Urine Urobilinogen 0.2 (0.2-1.0) mg/dL Ur Leukocyte Esterase Trace H (NEGATIVE) Urine RBC 5-10 H /HPF Urine WBC 30-40 H (0-5/HPF) /HPF Ur Epithelial Cells Few (NOT SEEN) /HPF Amorphous Sediment Few (NOT SEEN) /HPF Urine Bacteria Few (0-FEW/HPF) /HPF Urine Mucus Few H (NOT SEEN) /LPF Meds: Medications Discontinued Medications Generic Name Dose Route Start Last Admin Trade Name Yane PRN Reason Stop Dose Admin Ceftriaxone Sodium 250 mg/ 0 mg 03/24/20 21:05 03/24/20 21:16 Lidocaine HCl 0.9 ml IM 03/24/20 21:06 1 inj ONETIME ONE Administration Departure - Departure Time of Disposition: 21:29 Disposition: Home, Self-Care 01 Condition: Fair Clinical Impression: Epididymitis, right - Discharge Information *PRESCRIPTION DRUG MONITORING PROGRAM REVIEWED*: Not Applicable *COPY OF PRESCRIPTION DRUG MONITORING REPORT IN PATIENT MANJU: Not Applicable Instructions: Epididymitis Forms: ED Department Discharge Care Plan Goals: The patient was advised of the examination, lab and ultrasound results during the visit. The patient was given an injection of Rocephin while in the ED and discharged with a prescription for Doxycycline (100 mg) #28 to take 1 by mouth 2 times per day for 14 days. The patient will be informed of the send out lab results when received. The patient was encouraged to attempt to elevate his scrotum, use cool packs to the area, rest and avoid heavy lifting until symptoms resolve. If the patient has any additional symptoms or concerns, the patient should either return to the emergency department or visit his primary care facility. Sepsis Event Note (ED) - Evaluation Sepsis Screening Result: No Definite Risk - Focused Exam Vital Signs: Vital Signs Temp Pulse Resp BP Pulse Ox 03/24/20 19:56 126/87 03/24/20 19:28 36.3 C 83 14 146/101 H 100 - My Orders Last 24 Hours: My Active Orders 03/24/20 20:05 CHLAMYDIA AND GONORRHEA BY TMA Stat 03/24/20 20:06 CULTURE URINE [RM] Urgent - Assessment/Plan Last 24 Hours: My Active Orders 03/24/20 20:05 CHLAMYDIA AND GONORRHEA BY TMA Stat 03/24/20 20:06 CULTURE URINE [RM] Urgent
[2020-03-24 19:57] VITALS: BP 126/87
[2020-03-24 20:23] LABS: ANION GAP 13.6 mEq/L (7-13); CHLORIDE,CL 105 mmol/L (98-107); SODIUM,NA 138 mmol/L (136-145)
[2020-03-24] MEDS ORDERED: cefTRIAXone 250 MG, Lidocaine 1% 0.9 ML IM ONE ×2 (21:05)
--- NOTE | 2020-03-24 21:22 | US ---
PROCEDURE INFORMATION: Exam: US Scrotum Exam date and time: 03/24/2020 8:28 PM Age: 49 years old Clinical indication: Scrotum pain; Additional info: Right testicular swelling and pain TECHNIQUE: Imaging protocol: Real-time ultrasound of the scrotum and contents with color Doppler and image documentation. COMPARISON: No relevant prior studies available. FINDINGS: Right testicle: The right testicle measures 5.2 x 3.7 x 3.0 cm and is normal appearance. There is no evidence of intratesticular mass. There is normal blood flow the right testicle. Left testicle: The left testicle measures 4.4 x 3.4 x 2.4 cm and is normal appearance. There is no evidence of intratesticular mass. There is normal blood flow in the left testicle. Epididymides: The right epididymis is enlarged and shows hypervascularity. The left epididymis is normal. Scrotum: There is a hypoechoic serpiginous structure without internal blood flow lateral to the right epididymis, suggesting a thrombosed varicocele. There is a trace right hydrocele. IMPRESSION: 1. Right epididymitis. 2. The testicles are symmetric and normal in appearance. There is no evidence of testicular torsion. 3. Probable thrombosed varicocele in the right hemiscrotum.
[2020-03-26 11:46] LABS: C.TRACHOMATIS BY TMA Positive (Negative); N.GONORRHOEAE BY TMA Negative (Negative)
== END 2020-03-24 21:33 | disposition home or self-care (01) ==
LOC: DL.ED 19:13
DX: N45.1 Epididymitis (principal)
CPT/HCPCS: 36415; 76870; 80053; 81001; 85025; 87086; 87491; 87591; 96372; 99283; 99284-25; J0696; J2001

== ENCOUNTER 2020-07-12 18:51 | Emergency (ER) | payer OTHER ==
[2020-07-12 19:21] VITALS: BP 163/98; PULSE 94
--- NOTE | 2020-07-12 20:01 | EDM.PDOC ---
ED HPI GENERAL MEDICAL PROBLEM - General Chief Complaint: ENT Problem Stated Complaint: EYE PROBLEM Time Seen by Provider: 07/12/20 19:30 Source of Information: Reports: Patient, RN, RN Notes Reviewed History Limitations: Reports: No Limitations - History of Present Illness INITIAL COMMENTS - FREE TEXT/NARRATIVE: Patient presents to the ED via personal vehicle with complaints of vision change in the left eye. The patient reports he first noted a glowing halo in his left eye peripheral vision when he blinks or looks too far to the left. He states this change in vision is transient and if he keeps his eyes open or looks straight ahead it dissipates entirely. He denies blurry vision, loss of vision, eye pain, eye irritation, eye drainage, or excessive tears. He states he has never experienced a change in vision similar to this in the past. He does attest to requiring eyeglasses, but he does not wear them. 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 - Related Data Allergies Allergy/AdvReac Type Severity Reaction Status Date / Time No Known Allergies Allergy Verified 07/12/20 19:21 Past Medical History - Past Health History Medical/Surgical History: Denies Medical/Surgical History HEENT History: Reports: Hard of Hearing, Impaired Vision Other HEENT History: states near sighted, wears glasses at times Cardiovascular History: Reports: None Respiratory History: Reports: None Gastrointestinal History: Reports: None Genitourinary History: Reports: None Musculoskeletal History: Reports: None Neurological History: Reports: Migraines Psychiatric History: Reports: None Endocrine/Metabolic History: Reports: None Other Endocrine/Metabolic History: has had hypoglycemia at times Hematologic History: Reports: None Immunologic History: Reports: None Oncologic (Cancer) History: Reports: None Dermatologic History: Reports: None - Infectious Disease History Infectious Disease History: Reports: None - Past Surgical History Head Surgeries/Procedures: Reports: None Social & Family History - Family History Family Medical History: No Pertinent Family History - Tobacco Use Tobacco Use Status *Q: Never Tobacco User Second Hand Smoke Exposure: No - Caffeine Use Caffeine Use: Reports: Soda, Tea - Alcohol Use Date of Last Drink: 07/05/20 - Recreational Drug Use Recreational Drug Use: No - Living Situation & Occupation Living situation: Reports: with Significant Other Occupation: Employed ED ROS ENT - Review of Systems Review Of Systems: Comprehensive ROS is negative, except as noted in HPI. ED EXAM, ENT - Physical Exam Exam: See Below Exam Limited By: No Limitations General Appearance: Alert, No Apparent Distress Eye Exam: Bilateral Eye: EOMI, Normal Inspection, PERRL Ears: Normal External Exam, Normal Canal, Hearing Grossly Normal, Normal TMs Nose: Normal Inspection, Normal Mucousa, No Blood Mouth/Throat: Normal Inspection, Normal Gums, Normal Lips, Normal Oropharynx, Normal Teeth Head: Atraumatic, Normocephalic Neck: Normal Inspection, Supple, Non-Tender, Full Range of Motion. No: Lymphadenopathy (L), Lymphadenopathy (R) Respiratory/Chest: No Respiratory Distress, Lungs Clear, Normal Breath Sounds, No Accessory Muscle Use, Chest Non-Tender Cardiovascular: Normal Peripheral Pulses, Regular Rate, Rhythm, No Edema, No Gallop, No JVD, No Murmur, No Rub Back: Normal Inspection, Full Range of Motion Neurological: Alert, Oriented, CN II-XII Intact, Normal Cognition, Normal Gait, No Motor/Sensory Deficits Psychiatric: Normal Affect, Normal Mood Skin: Warm, Dry, Intact, Normal Color, No Rash. No: Ecchymosis, Jaundice, Mottled, Pallor, Petechiae Course - Vital Signs Last Recorded V/S: Last Vital Signs Temp 96.8 F L 07/12/20 18:55 Pulse 94 07/12/20 18:55 Resp 18 07/12/20 18:55 BP 163/98 H 07/12/20 18:55 Pulse Ox 100 07/12/20 18:55 - Re-Assessments/Exams Free Text/Narrative Re-Assessment/Exam: 07/12/20 Visual Acuity 20/50, bilaterally Discussed findings of examination; normal movement and PERRLA, no nystagmus. Discussed the need to revisit the eye doctor, or order prescription eyeglasses from most recent prescription, as his eye is likely fatigued. Patient verbalized understanding and agreement with the plan of care. Departure - Departure Time of Disposition: 19:58 Disposition: Home, Self-Care 01 Condition: Good Clinical Impression: Change in vision - Discharge Information *PRESCRIPTION DRUG MONITORING PROGRAM REVIEWED*: Not Applicable *COPY OF PRESCRIPTION DRUG MONITORING REPORT IN PATIENT MANJU: Not Applicable Instructions: Visual Disturbances Forms: ED Department Discharge Additional Instructions: 1.) Follow up with your eye doctor early next week; your vision via eye chart is 20/50 in both eyes which would require daily vision correction via eyeglasses. 2.) Your safety glasses may provide some relief of this symptom, you may consider wearing them while you are waiting to get into the landscape specialist if the vision change bothers you. Sepsis Event Note (ED) - Evaluation Sepsis Screening Result: No Definite Risk - Focused Exam Vital Signs: Vital Signs Temp Pulse Resp BP Pulse Ox 07/12/20 18:55 96.8 F L 94 18 163/98 H 100
== END 2020-07-12 20:05 | disposition home or self-care (01) ==
LOC: DL.ED 18:51
DX: H53.9 Unspecified visual disturbance (principal)
CPT/HCPCS: 99282; 99283

== ENCOUNTER 2020-08-13 12:04 | Emergency (ER) | payer OTHER ==
[2020-08-13 12:19] VITALS: BP 124/87; PULSE 84
[2020-08-13] MEDS ORDERED: Sodium Chloride 0.9% 1,000 ML IV ONE (12:43)
[2020-08-13] MEDS ORDERED: Ketorolac 30 MG/ML SDV IVPUSH ONE (12:43)
--- NOTE | 2020-08-13 12:50 | EDM.PDOC ---
ED HPI GENERAL MEDICAL PROBLEM - General Chief Complaint: Back Pain or Injury Stated Complaint: LOWER BACK PAIN Time Seen by Provider: 08/13/20 12:30 Source of Information: Reports: Patient, Old Records, RN, RN Notes Reviewed History Limitations: Reports: No Limitations - History of Present Illness INITIAL COMMENTS - FREE TEXT/NARRATIVE: Evens is a 50 y/o male who presents to the ED via personal vehicle for complaints of right low back pain. The patient reports that his back pain began approximately three days ago following abdominal pain and nausea; he states the abdominal pain and nausea subsided but the back pain persisted. He characterizes the pain as a dull ache that waxes and wanes. He reports that the pain is localized to the right flank and does not radiate. He denies recent injury, strain, or falls. The patient does attest to a history of kidney stone in March 2020. He denies fever, shaking chills, shortness of breath, vomiting, dysuria, hematuria, frequency, saddle paraesthesia, incontinence, BLE weakness, constipation, or diarrhea. The patient denies tobacco, alcohol, or recreational drug use. - Related Data Allergies Allergy/AdvReac Type Severity Reaction Status Date / Time No Known Allergies Allergy Verified 08/13/20 12:12 Past Medical History - Past Health History Medical/Surgical History: Denies Medical/Surgical History HEENT History: Reports: Hard of Hearing, Impaired Vision Other HEENT History: states near sighted, wears glasses at times Cardiovascular History: Reports: None Respiratory History: Reports: None Gastrointestinal History: Reports: None Genitourinary History: Reports: None Musculoskeletal History: Reports: None Neurological History: Reports: Migraines Psychiatric History: Reports: None Endocrine/Metabolic History: Reports: None Other Endocrine/Metabolic History: has had hypoglycemia at times Hematologic History: Reports: None Immunologic History: Reports: None Oncologic (Cancer) History: Reports: None Dermatologic History: Reports: None - Infectious Disease History Infectious Disease History: Reports: None - Past Surgical History Head Surgeries/Procedures: Reports: None Social & Family History - Family History Family Medical History: No Pertinent Family History - Tobacco Use Tobacco Use Status *Q: Never Tobacco User - Caffeine Use Caffeine Use: Reports: Soda - Recreational Drug Use Recreational Drug Use: No - Living Situation & Occupation Living situation: Reports: with Significant Other Occupation: Employed ED ROS GENERAL - Review of Systems Review Of Systems: Comprehensive ROS is negative, except as noted in HPI. ED EXAM,LOWER BACK PAIN/INJURY - Physical Exam Exam: See Below Exam Limited By: No Limitations General Appearance: Alert, Mild Distress (Low back pain) Eye Exam: Bilateral Eye: EOMI, Normal Inspection, PERRL (3mm) Throat/Mouth: Normal Inspection, Normal Voice, No Airway Compromise Head: Atraumatic, Normocephalic Neck: Normal Inspection, Supple, Non-Tender, Full Range of Motion Respiratory/Chest: No Respiratory Distress, Lungs Clear, Normal Breath Sounds, No Accessory Muscle Use, Chest Non-Tender Cardiovascular: Normal Peripheral Pulses, Regular Rate, Rhythm, No Edema, No Gallop, No JVD, No Murmur, No Rub GI/Abdominal: Normal Bowel Sounds, Soft, Non-Tender, No Distention, No Mass, Pelvis Stable. No: Guarding, Rigid, Rebound (Male) Exam: Deferred Rectal (Males) Exam: Deferred Back Exam: CVA Tenderness (L), CVA Tenderness (R), Muscle Spasm (To right with palpation ). No: Vertebral Tenderness Extremities: Normal Inspection, Normal Range of Motion, Non-Tender, No Pedal Edema, Normal Capillary Refill Neurological: Alert, Normal Mood/Affect, Normal Dorsiflexion, CN II-XII Intact, Normal Plantar Flexion, Normal Gait, Normal Reflexes, No Motor/Sensory Deficits, Oriented x 3 Psychiatric: Normal Affect, Normal Mood Skin Exam: Warm, Dry, Intact, Normal Color, No Rash. No: Ecchymosis, Erythema, Jaundice, Mottled, Pallor, Petechiae Course - Vital Signs Last Recorded V/S: Last Vital Signs Temp 96.4 F L 08/13/20 12:12 Pulse 84 08/13/20 12:12 Resp 18 08/13/20 12:12 BP 124/87 08/13/20 12:12 Pulse Ox 100 08/13/20 12:12 - Orders/Labs/Meds Labs: Laboratory Tests 08/13/20 08/13/20 08/13/20 Range/Units 12:59 12:59 12:59 WBC 5.5 (5.0-10.0) 10^3/uL RBC 5.10 (4.6-6.2) 10^6/uL Hgb 14.0 (14.0-18.0) g/dL Hct 42.3 (40.0-54.0) % MCV 82.9 (80-100) fL MCH 27.5 (27.0-34.0) pg MCHC 33.1 (33.0-35.0) g/dL Plt Count 270 (150-450) 10^3/uL Neut % (Auto) 66.2 (42.2-75.2) % Lymph % (Auto) 21.0 (20.5-50.1) % [place] % (Auto) 9.9 H (2-8) % Eos % (Auto) 2.4 (1.0-3.0) % Baso % (Auto) 0.5 (0.0-1.0) % Sodium 136 (136-145) mmol/L Potassium 3.9 (3.5-5.1) mmol/L Chloride 103 (98-107) mmol/L Carbon Dioxide 24 (21-32) mmol/L Anion Gap 12.9 (7-13) mEq/L BUN 15 (7-18) mg/dL Creatinine 1.06 (0.70-1.30) mg/dL Est Cr Clr Drug Dosing 96.93 mL/min Estimated GFR (MDRD) > 60 BUN/Creatinine Ratio 14.2 (No establ ref range) Glucose 107 H (70-99) mg/dL Lactic Acid 0.9 (0.4-2.0) mmol/L Calcium 8.1 L (8.5-10.1) mg/dL Magnesium 1.8 (1.8-2.4) mg/dL Total Bilirubin 0.4 (0.2-1.0) mg/dL AST 19 (15-37) U/L ALT 27 (16-63) U/L Alkaline Phosphatase 67 (46-116) U/L Total Protein 6.7 (6.4-8.2) g/dL Albumin 3.4 (3.4-5.0) g/dL Globulin 3.3 Albumin/Globulin Ratio 1.0 Urine Color (YELLOW) Urine Appearance (CLEAR) Urine pH (5.0-9.0) Ur Specific [place] (1.005-1.030) Urine Protein (NEGATIVE) Urine Glucose (UA) (NEGATIVE) Urine Ketones (NEGATIVE) Urine Occult Blood (NEGATIVE) Urine Nitrite (NEGATIVE) Urine Bilirubin (NEGATIVE) Urine Urobilinogen (0.2-1.0) mg/dL Ur Leukocyte Esterase (NEGATIVE) 08/13/20 Range/Units 13:10 WBC (5.0-10.0) 10^3/uL RBC (4.6-6.2) 10^6/uL Hgb (14.0-18.0) g/dL Hct (40.0-54.0) % MCV (80-100) fL MCH (27.0-34.0) pg MCHC (33.0-35.0) g/dL Plt Count (150-450) 10^3/uL Neut % (Auto) (42.2-75.2) % Lymph % (Auto) (20.5-50.1) % [place] % (Auto) (2-8) % Eos % (Auto) (1.0-3.0) % Baso % (Auto) (0.0-1.0) % Sodium (136-145) mmol/L Potassium (3.5-5.1) mmol/L Chloride (98-107) mmol/L Carbon Dioxide (21-32) mmol/L Anion Gap (7-13) mEq/L BUN (7-18) mg/dL Creatinine (0.70-1.30) mg/dL Est Cr Clr Drug Dosing mL/min Estimated GFR (MDRD) BUN/Creatinine Ratio (No establ ref range) Glucose (70-99) mg/dL Lactic Acid (0.4-2.0) mmol/L Calcium (8.5-10.1) mg/dL Magnesium (1.8-2.4) mg/dL Total Bilirubin (0.2-1.0) mg/dL AST (15-37) U/L ALT (16-63) U/L Alkaline Phosphatase (46-116) U/L Total Protein (6.4-8.2) g/dL Albumin (3.4-5.0) g/dL Globulin Albumin/Globulin Ratio Urine Color Yellow (YELLOW) Urine Appearance Clear (CLEAR) Urine pH 6.5 (5.0-9.0) Ur Specific [place] 1.015 (1.005-1.030) Urine Protein Negative (NEGATIVE) Urine Glucose (UA) Negative (NEGATIVE) Urine Ketones Negative (NEGATIVE) Urine Occult Blood Negative (NEGATIVE) Urine Nitrite Negative (NEGATIVE) Urine Bilirubin Negative (NEGATIVE) Urine Urobilinogen 0.2 (0.2-1.0) mg/dL Ur Leukocyte Esterase Negative (NEGATIVE) Meds: Medications Discontinued Medications Generic Name Dose Route Start Last Admin Trade Name Yane PRN Reason Stop Dose Admin Sodium Chloride 1,000 mls @ 999 mls/hr 08/13/20 12:43 08/13/20 13:08 Normal Saline IV 08/13/20 13:43 999 mls/hr .BOLUS ONE Administration Ketorolac Tromethamine 30 mg 08/13/20 12:43 08/13/20 13:08 Ketorolac 30 Mg/Ml Sdv IVPUSH 08/13/20 12:44 30 mg ONETIME ONE Administration Orphenadrine Citrate 60 mg 08/13/20 13:55 08/13/20 14:03 Orphenadrine 60 Mg/2 Ml Inj IM 08/13/20 13:56 60 mg ONETIME ONE Administration - Re-Assessments/Exams Free Text/Narrative Re-Assessment/Exam: 08/13/20 Given bilateral CVA tenderness will assess for renal stones via UA. Will treat prophylactically with NS 1L bolus and Ketorolac 30mg IV while UA pending. UA unremarkable for evidence of infection or occult blood. Will refrain from imaging given WNL UA. Will treat muscle spasm with orphenadrine. Discussed findings of examination and lab work with patient. Discussed supportive cares for muscle spasm as well as red flag signs and symptoms which would warrant reev aluation. Patient verbalized understanding and agreement with the plan of care. Departure - Departure Time of Disposition: 13:57 Disposition: Home, Self-Care 01 Condition: Good Clinical Impression: Spasm of muscle of lower back - Discharge Information *PRESCRIPTION DRUG MONITORING PROGRAM REVIEWED*: Not Applicable *COPY OF PRESCRIPTION DRUG MONITORING REPORT IN PATIENT MANJU: Not Applicable Instructions: Muscle Cramps and Spasms Referrals: PCP,None [Primary Care Provider] - Forms: ED Department Discharge Additional Instructions: Rx: orphenadrine 1.) You may apply heat to your lower back muscles, as spasm persists. 2.) You may continue taking Aleve, as pain persist. You may also take acetaminophen (Tylenol) 650mg every six hours, as pain persists. 3.) Drink plenty of water to stay hydrated. 4.) Do not operate a car while taking orphenadrine. Sepsis Event Note (ED) - Evaluation Sepsis Screening Result: No Definite Risk
[2020-08-13 13:23] LABS: ANION GAP 12.9 mEq/L (7-13); CHLORIDE,CL 103 mmol/L (98-107); SODIUM,NA 136 mmol/L (136-145)
[2020-08-13] MEDS ORDERED: Orphenadrine 60 MG/2 ML Inj IM ONE (13:55)
== END 2020-08-13 14:23 | disposition home or self-care (01) ==
LOC: DL.ED 12:04
DX: M62.830 Muscle spasm of back (principal)
CPT/HCPCS: 36415; 80053; 81003; 83605; 83735; 85025; 96372; 96374; 99283; J1885; J2360; J7030

== ENCOUNTER 2020-09-29 08:56 | Emergency (ER) | payer OTHER ==
[2020-09-29 09:37] VITALS: BP 122/81; PULSE 76
--- NOTE | 2020-09-29 12:16 | CR ---
EXAMINATION: Cervical Spine 3V SEX: Male AGE: 50 years CLINICAL HISTORY: 50-year-old male complaining of shoulder pain AP, lateral and swimmer's views of the cervical spine confirm chronic mild cervical disc degeneration (interspace narrowing with hypertrophic marginal/uncinate spur formation) C5-6 level. No sign of pathologic skeletal lesion, prevertebral soft tissue swelling, cervical fracture or spondylolisthesis. No cervical rib anomalies. Lung apices clear. Discussion: Unenhanced MRI cervical spine should be considered as the next best least invasive diagnostic modality for this patient with presumed "radiculopathy".
--- NOTE | 2020-09-29 12:17 | CR ---
EXAMINATION: Shoulder Comp Rt SEX: Male AGE: 50 years CLINICAL HISTORY: 50-year-old male right shoulder pain. Interpretation: Mild reactive sclerosis ipsilateral acromioclavicular joint Hill-Sachs notch like deformity lateral aspect of the humeral head. Homogeneous normal bone density for age and gender. Right lung apex clear. No sign of pathologic skeletal lesion, juxta-articular rotator cuff tendon calcifications, right shoulder fracture or dislocation. (No acromioclavicular separation). No foreign bodies. CONCLUSION: Minimal arthritic changes right shoulder.
--- NOTE | 2020-09-29 12:18 | CR ---
EXAMINATION: Thoracic Spine 2V SEX: Male AGE: 50 years CLINICAL HISTORY: 50-year-old male with right shoulder and thoracic pain ("C5-6 disc degeneration") Interpretation: Spondylosis (small spurs particularly lower thoracic spine). Normal density height and alignment of the thoracic vertebra. No sign of pathologic skeletal lesion, thoracic fracture, spondylolisthesis or abnormal intervertebral disc space narrowing. Posterior ribs unremarkable. Normal mediastinal width and lung weeks are clear. CONCLUSION: Mild arthritic changes particularly lower thoracic spine.
--- NOTE | 2020-09-29 12:30 | EDM.PDOC ---
ED HPI GENERAL MEDICAL PROBLEM - General Chief Complaint: Upper Extremity Injury/Pain Stated Complaint: [id number] RIGHT SHOULDER PAIN Time Seen by Provider: 09/29/20 10:58 Source of Information: Reports: Patient, RN, RN Notes Reviewed History Limitations: Reports: No Limitations - History of Present Illness INITIAL COMMENTS - FREE TEXT/NARRATIVE: Patient is a 50-year-old male who presents to ER with complint of right shoulder pain. States he woke up with the pain--denies fall or injury. States worsened as he tried to work. Rates pain 3-4/10 affecting back 3-4/10. Reports inflamed shoulder blade greater than 10 years ago. Onset: Today Duration: Constant Location: Reports: Upper Extremity, Right Quality: Reports: Ache Severity: Mild Improves with: Reports: None Worsens with: Reports: None Context: Reports: Activity Right Shoulder Pain Score (Numeric/FACES): 4 - Related Data Allergies Allergy/AdvReac Type Severity Reaction Status Date / Time No Known Allergies Allergy Verified 09/29/20 09:35 Home Meds: Home Meds . [No Known Home Meds] 09/29/20 [History] Past Medical History - Past Health History Medical/Surgical History: Denies Medical/Surgical History HEENT History: Reports: Hard of Hearing, Impaired Vision Other HEENT History: states near sighted, wears glasses at times Cardiovascular History: Reports: None Respiratory History: Reports: None Gastrointestinal History: Reports: None Genitourinary History: Reports: None Musculoskeletal History: Reports: None Neurological History: Reports: Migraines Psychiatric History: Reports: None Endocrine/Metabolic History: Reports: None Other Endocrine/Metabolic History: has had hypoglycemia at times Hematologic History: Reports: None Immunologic History: Reports: None Oncologic (Cancer) History: Reports: None Dermatologic History: Reports: None - Infectious Disease History Infectious Disease History: Reports: None - Past Surgical History Head Surgeries/Procedures: Reports: None Social & Family History - Family History Family Medical History: No Pertinent Family History - Tobacco Use Tobacco Use Status *Q: Unknown Ever Used Tobacco - Caffeine Use Caffeine Use: Reports: Soda - Recreational Drug Use Recreational Drug Use: No - Living Situation & Occupation Living situation: Reports: with Significant Other Occupation: Employed Review of Systems - Review of Systems Review Of Systems: Comprehensive ROS is negative, except as noted in HPI. ED EXAM, GENERAL - Physical Exam Exam: See Below Exam Limited By: No Limitations General Appearance: Mild Distress Eye Exam: Bilateral Eye: EOMI, Normal Inspection, PERRL Ears: Normal External Exam, Normal Canal, Hearing Grossly Normal, Normal TMs Nose: Normal Inspection, Normal Mucosa, No Blood Throat/Mouth: Normal Inspection, Normal Lips, Normal Teeth, Normal Gums, Normal Oropharynx, Normal Voice, No Airway Compromise Head: Atraumatic, Normocephalic Neck: Normal Inspection, Supple, Non-Tender, Full Range of Motion Respiratory/Chest: No Respiratory Distress, Lungs Clear, Normal Breath Sounds, No Accessory Muscle Use, Chest Non-Tender Cardiovascular: Normal Peripheral Pulses, Regular Rate, Rhythm, No Edema, No Gallop, No JVD, No Murmur, No Rub GI/Abdominal: Normal Bowel Sounds, Soft, Non-Tender, No Organomegaly, No Distention, No Abnormal Bruit, No Mass (Male) Exam: Deferred Rectal (Males) Exam: Deferred Back Exam: Normal Inspection, Full Range of Motion, NT Extremities: Other (tender thoracic midline/lateral with decreased range of motion right shoulder) Neurological: Alert, Oriented, CN II-XII Intact, Normal Cognition, Normal Gait, Normal Reflexes, No Motor/Sensory Deficits Psychiatric: Normal Affect, Normal Mood Skin Exam: Warm, Dry, Intact, Normal Color, No Rash Lymphatic: No Adenopathy ED TRAUMA EXTREMITY PROCEDURES - Splinting Right Upper Extremity Splint Site: Right arm/shoulder Pre-Procedure NV Status: Normal Post-Procedure NV Status: Normal Splint Material: Sling Splint Design: Sling Applied & Form Fitted By: Nurse Provider Post-Splint Application NV Check: NV Status Normal, Good Position Complications: No Course - Vital Signs Last Recorded V/S: Last Vital Signs Temp 97.8 F 09/29/20 09:35 Pulse 76 09/29/20 09:35 Resp 18 09/29/20 09:35 BP 122/81 09/29/20 09:35 Pulse Ox 99 09/29/20 09:35 - Radiology Interpretation Free Text/Narrative:: Right shoulder x-ray: Mild reactive sclerosis ipsilateral acromial clavicular joint Hill-Sachs notch- like deformity lateral aspect of the humeral head Homogenous normal bone density for age and gender. Right lung apex clear. No sign of pathologic skeletal lesion, juxta articular rotator cuff tendon calcifications, right shoulder fracture or dislocation. No acromioclavicular separation. No foreign bodies Cervical spine x-ray: AP lateral and swimmer's views of the cervical spine confirm chronic mild cervical disc degeneration, interspace narrowing with hypertrophic marginal hallucinate spur formation, C5-6 level. No sign of pathologic skeletal lesion, prevertebral soft tissue swelling, cervical fracture or spondylolisthesis No cervical rib anomalies. Lung apices clear. Unenhanced MRI cervical spine should be considered as the next best least invasive diagnostic modality for this patient with presumed radiculopathy. Thoracic spine x-ray: Mild arthritic changes particularly lower thoracic spine See radiologist report Departure - Departure Time of Disposition: 12:28 Disposition: Home, Self-Care 01 Condition: Fair Clinical Impression: Upper back pain Right shoulder pain Qualifiers: Chronicity: acute Qualified Code(s): M25.511 - Pain in right shoulder - Discharge Information *PRESCRIPTION DRUG MONITORING PROGRAM REVIEWED*: No *COPY OF PRESCRIPTION DRUG MONITORING REPORT IN PATIENT MANJU: No Instructions: How To Use a Sling, [id number], Shoulder Pain, [id number] Referrals: PCP,None [Primary Care Provider] - Forms: ED Department Discharge Additional Instructions: Alternate Tylenol and ibuprofen for pain Rx: Cyclobenzaprine 10 mg orally every 8 hours as needed for muscle spasm/pain Follow-up with your primary care provider in the clinic for possible MRI Rest the right arm and shoulder, using the sling. Prop with a pillow while in bed, may take the sling off while sleeping No heavy lifting or raising the arms Follow-up with physical therapy Sepsis Event Note (ED) - Evaluation Sepsis Screening Result: No Definite Risk - Focused Exam Vital Signs: Vital Signs Temp Pulse Resp BP Pulse Ox 09/29/20 09:35 97.8 F 76 18 122/81 99
== END 2020-09-29 12:40 | disposition home or self-care (01) ==
LOC: DL.ED 08:56
DX: M25.511 Pain in right shoulder (principal); M54.6 Pain in thoracic spine
CPT/HCPCS: 72040; 72070; 73030-RT; 99283

== ENCOUNTER 2020-10-05 09:44 | Emergency (ER) | payer OTHER ==
[2020-10-05 09:54] VITALS: PULSE 97
[2020-10-05] MEDS ORDERED: Lidocaine 1% with EPINEPHrine 1:100,000 20 ML MDV INJECT ONE (10:05)
--- NOTE | 2020-10-05 10:42 | EDM.PDOC ---
ED HPI GENERAL MEDICAL PROBLEM - General Chief Complaint: Gastrointestinal Problem Stated Complaint: HEMRROIDS ACTING UP Time Seen by Provider: 10/05/20 10:15 - History of Present Illness INITIAL COMMENTS - FREE TEXT/NARRATIVE: Evens is a 50-year-old man who presents with severe pain due to his external hemorrhoids. He has had recurrent issues with this per his report. He has been told in the past that he needs to see a general surgeon to consider surgical removal, but has not yet made that appointment. He states that yesterday the pain became quite severe, and it is very difficult for him to even have a bowel movement. He has noticed some clear discharge as well as some bleeding. Rectal Pain Score (Numeric/FACES): 8 - Related Data Allergies Allergy/AdvReac Type Severity Reaction Status Date / Time No Known Allergies Allergy Verified 10/05/20 09:57 Home Meds: Home Meds Hydrocortisone [Anusol-HC] 30 gm RC BID #30 cream..g. 10/05/20 [Rx] Lidocaine 2% [Xylocaine 2% Jelly] 1 ml .XX TID PRN #60 ml 10/05/20 [Rx] Past Medical History - Past Health History Medical/Surgical History: Denies Medical/Surgical History HEENT History: Reports: Hard of Hearing, Impaired Vision Other HEENT History: states near sighted, wears glasses at times Cardiovascular History: Reports: None Respiratory History: Reports: None Gastrointestinal History: Reports: None Genitourinary History: Reports: None Musculoskeletal History: Reports: None Neurological History: Reports: Migraines Psychiatric History: Reports: None Endocrine/Metabolic History: Reports: None Other Endocrine/Metabolic History: has had hypoglycemia at times Hematologic History: Reports: None Immunologic History: Reports: None Oncologic (Cancer) History: Reports: None Dermatologic History: Reports: None - Infectious Disease History Infectious Disease History: Reports: None - Past Surgical History Head Surgeries/Procedures: Reports: None Social & Family History - Family History Family Medical History: No Pertinent Family History - Tobacco Use Tobacco Use Status *Q: Never Tobacco User - Caffeine Use Caffeine Use: Reports: Soda - Recreational Drug Use Recreational Drug Use: No - Living Situation & Occupation Living situation: Reports: with Significant Other Occupation: Employed ED ROS GENERAL - Review of Systems Review Of Systems: Comprehensive ROS is negative, except as noted in HPI. ED EXAM, RENAL/ - Physical Exam Exam: See Below Text/Narrative:: General: Evens is a 50-year-old man in no acute distress Rectal exam reveals a large amount of large external hemorrhoids, approximately 8-9 in total. 3 of these appear to be thrombosed at this time. The hemorrhoid burden is so large it is actually difficult to even examine his rectum in its entirety. 1% lidocaine with epinephrine was used to anesthetize the 3 that appear to be thrombosed. After this was applied, a #15 scalpel was used to make a small incision in all 3 of these. There was immediately return of blood, but due to his pain and the significant hemorrhoid burden, it was difficult to perform a full thrombectomy. Course - Vital Signs Last Recorded V/S: Last Vital Signs Temp 98 F 10/05/20 09:53 Pulse 97 10/05/20 09:53 Resp 16 10/05/20 09:53 BP Pulse Ox 100 10/05/20 09:53 - Orders/Labs/Meds Meds: Medications Discontinued Medications Generic Name Dose Route Start Last Admin Trade Name Yane PRN Reason Stop Dose Admin Lidocaine/Epinephrine 20 ml 10/05/20 10:05 10/05/20 10:36 Lidocaine 1% With Epinephrine 1:100,000 20 Ml Mdv INJECT 10/05/20 10:06 20 ml ONETIME ONE Administration Departure - Departure Time of Disposition: 10:37 Disposition: Home, Self-Care 01 Clinical Impression: Thrombosed external hemorrhoids - Discharge Information *PRESCRIPTION DRUG MONITORING PROGRAM REVIEWED*: Not Applicable *COPY OF PRESCRIPTION DRUG MONITORING REPORT IN PATIENT MANJU: Not Applicable Prescriptions: Hydrocortisone [Anusol-HC] 30 gm RC BID #30 cream..g. Lidocaine 2% [Xylocaine 2% Jelly] 1 ml .XX TID PRN #60 ml PRN Reason: Pain Instructions: Hemorrhoids, [id number], Surgical Procedures for Hemorrhoids, Nonsurgical Procedures for Hemorrhoids, Care After Forms: ED Department Discharge Sepsis Event Note (ED) - Evaluation Sepsis Screening Result: No Definite Risk - Problem List & Annotations (1) Thrombosed external hemorrhoids SNOMED Code(s): 51722367 Code(s): K64.5 - PERIANAL VENOUS THROMBOSIS Status: Acute - Problem List Review Problem List Initiated/Reviewed/Updated: Yes - Assessment/Plan Assessment:: 1. Multiple thrombosed external hemorrhoids in a 50-year-old man with significant external hemorrhoid burden Plan: 1. He will be sent home with Anusol HC cream to use. I strongly urged him to make an appointment with a general surgeon as soon as possible to discuss surgical intervention. Based on the appearance of this on exam as well as the inability to get a good thrombectomy performed today, I think it is very likely that this will recur for him in the near future
== END 2020-10-05 10:47 | disposition home or self-care (01) ==
LOC: DL.ED 09:44
DX: K64.5 Perianal venous thrombosis (principal)
CPT/HCPCS: 46083; 99282-25; 99283

== ENCOUNTER 2020-11-01 23:03 | Emergency (ER) | payer OTHER | END 2020-11-02 00:03 | disposition left against medical advice (07) | LOC: DL.ED 23:03 | DX: Z53.21 Procedure and treatment not carried out due to patient leaving prior to being seen by health care provider (principal) ==

== ENCOUNTER 2020-11-02 09:08 | Emergency (ER) | payer OTHER ==
[2020-11-02 09:29] VITALS: PULSE 97
[2020-11-02] MEDS ORDERED: Baclofen 10 MG Tab PO ONE (09:39)
--- NOTE | 2020-11-02 09:39 | EDM.PDOC ---
ED HPI GENERAL MEDICAL PROBLEM - General Chief Complaint: Back Pain or Injury Stated Complaint: BACK PAIN,CAN'T MOVE NECK OR ARM Time Seen by Provider: 11/02/20 09:32 Source of Information: Reports: Patient History Limitations: Reports: No Limitations - History of Present Illness INITIAL COMMENTS - FREE TEXT/NARRATIVE: Pt is here for upper back, neck and left shoulder pain. He notes it has been going on for about a week now and seems to be getting worse. It started after he had surgery for his retina detachment. He has been laying on his right side due to the surgery and thinks that it what caused his symptoms. Never had this before. Has had trouble with his right shoulder and needed muscle relaxers then, but doesn't remember which ones he tried. He does have chronic back pain, but this is different. No numbness, tingling or weakness in the left arm. No pain with moving his neck side to side to tilting his head down, but tipping it back hurts. Left Neck Pain Score (Numeric/FACES): 4 - Related Data Allergies Allergy/AdvReac Type Severity Reaction Status Date / Time No Known Allergies Allergy Verified 11/02/20 09:29 Home Meds: Home Meds Hydrocortisone [Anusol-HC] 30 gm RC BID #30 cream..g. 10/05/20 [Rx] Lidocaine 2% [Xylocaine 2% Jelly] 1 ml .XX TID PRN #60 ml 10/05/20 [Rx] Cyclopentolate [Cyclopentolate 1% Opth Soln] 2 ml .XX ASDIRECTED 11/02/20 [History] Erythromycin Base [Erythromycin 0.5% Ophth Oint] 1 applic OP Q4H 11/02/20 [History] Hydrocodone/Acetaminophen [HYDROcodone-Acetaminophen 7.5-325 MG] 1 tab PO ASDIRECTED 11/02/20 [History] Timolol Maleate 5 ml OP ASDIRECTED 11/02/20 [History] prednisoLONE acetate [Pred Forte 1% Ophth Susp] 1 ml EYELF ATDISCHARGE 11/02/20 [History] Past Medical History - Past Health History Medical/Surgical History: Denies Medical/Surgical History HEENT History: Reports: Hard of Hearing, Impaired Vision Other HEENT History: states near sighted, wears glasses at times Cardiovascular History: Reports: None Respiratory History: Reports: None Gastrointestinal History: Reports: None Genitourinary History: Reports: None Musculoskeletal History: Reports: None Neurological History: Reports: Migraines Psychiatric History: Reports: None Endocrine/Metabolic History: Reports: None Other Endocrine/Metabolic History: has had hypoglycemia at times Hematologic History: Reports: None Immunologic History: Reports: None Oncologic (Cancer) History: Reports: None Dermatologic History: Reports: None - Infectious Disease History Infectious Disease History: Reports: None - Past Surgical History Head Surgeries/Procedures: Reports: None Social & Family History - Family History Family Medical History: No Pertinent Family History - Caffeine Use Caffeine Use: Reports: Soda - Living Situation & Occupation Living situation: Reports: with Significant Other Occupation: Employed ED ROS GENERAL - Review of Systems Review Of Systems: Comprehensive ROS is negative, except as noted in HPI. ED EXAM, UPPER BACK/NECK PAIN - Physical Exam Exam: See Below Exam Limited By: No Limitations General Appearance: Alert, WD/WN, Mild Distress (due to pain) Eye Exam: Bilateral Eye: Normal Inspection Ears Exam: Normal External Exam Throat/Mouth Exam: Normal Voice, No Airway Compromise Head Exam: Atraumatic, Normocephalic Neck Exam: Non-Tender, Normal Alignment, Limited Range of Motion (with extension due to pain), Muscle Spasm (Left trapezius and supraspinatous), Painful Range of Motion. No: Stiff Neck, Tender Midline Nexus Criteria: No: Posterior, Midline Cervical Tenderness, Evidence of Intoxication, Altered Level of Consciousness, Focal Neurological Deficit, Painful Distraction Injuries Cardiovascular/Respiratory: Regular Rate, Rhythm, No M/R/G, Normal Breath Sounds, No Respiratory Distress GI/Abdominal: Soft, Non-Tender (Male) Exam: Deferred Rectal (Males) Exam: Deferred Back Exam: Normal Inspection, Full Range of Motion Extremities: Normal Inspection, Normal Capillary Refill, Limited Range of Motion (at the left shoulder due to pain) Neurologic: huc II-XII nml As Tested, No Motor/Sensory Deficits, Alert, Normal Mood/Affect, Oriented x 3 Psychiatric: Normal Affect, Normal Mood Skin Exam: Normal Color, Warm/Dry Lymphatic: No Adenopathy Course - Vital Signs Last Recorded V/S: Last Vital Signs Temp 98.2 F 11/02/20 09:26 Pulse 97 11/02/20 09:26 Resp 14 07/18/21 09:26 BP 126/104 H 07/18/21 09:26 Pulse Ox 99 11/02/20 09:26 Departure - Departure Time of Disposition: 09:41 Disposition: Home, Self-Care 01 Condition: Good Clinical Impression: Muscle spasms of neck - Discharge Information *PRESCRIPTION DRUG MONITORING PROGRAM REVIEWED*: Not Applicable *COPY OF PRESCRIPTION DRUG MONITORING REPORT IN PATIENT MANJU: Not Applicable Instructions: Muscle Cramps and Spasms, [id number] Forms: ED Department Discharge Additional Instructions: Baclofen 10 mg three times daily as needed for muscle spasms Continue ice and heat therapy for pain relief as well as over the counter medications Follow up with PCP in 2-3 days, or sooner if needed Sepsis Event Note (ED) - Evaluation Sepsis Screening Result: No Definite Risk - Focused Exam Vital Signs: Vital Signs Temp Pulse Resp BP Pulse Ox 11/02/20 09:26 98.2 F 97 14 126/104 H 99
[2020-11-02 10:05] VITALS: BP 133/71
== END 2020-11-02 09:56 | disposition home or self-care (01) ==
LOC: DL.ED 09:08
DX: M62.838 Other muscle spasm (principal)
CPT/HCPCS: 99283; A9270-GY

== ENCOUNTER 2020-11-06 12:14 | Emergency (ER) | payer OTHER ==
[2020-11-06 15:44] VITALS: BP 133/91; PULSE 96
== END 2020-11-06 17:12 | disposition left against medical advice (07) ==
LOC: DL.ED 12:14
DX: Z53.21 Procedure and treatment not carried out due to patient leaving prior to being seen by health care provider (principal)

== ENCOUNTER 2020-11-21 21:21 | Emergency (ER) | payer OTHER ==
[2020-11-21] MEDS ORDERED: Ketorolac 30 MG/ML SDV IM ONE (21:59)
--- NOTE | 2020-11-21 22:03 | EDM.PDOC ---
ED HPI GENERAL MEDICAL PROBLEM - General Chief Complaint: Upper Extremity Injury/Pain Stated Complaint: BACK HURTS, LEFT SHOULDER DOWN TO FINGER TIP PAIN Time Seen by Provider: 11/21/20 21:45 Source of Information: Reports: Patient History Limitations: Reports: No Limitations - History of Present Illness INITIAL COMMENTS - FREE TEXT/NARRATIVE: ED with c/o upper back neck and shoulder pain, radiates down arm left arm to elbow and to 2nd and 3rd fingers. Has been seen previously for same c/o. has not followed up in clinic Tylenol rarely. no relief. No acute injury Left Arm Pain Score (Numeric/FACES): 6 - Related Data Allergies Allergy/AdvReac Type Severity Reaction Status Date / Time No Known Allergies Allergy Verified 11/02/20 09:29 Home Meds: Home Meds Hydrocortisone [Anusol-HC] 30 gm RC BID #30 cream..g. 10/05/20 [Rx] Lidocaine 2% [Xylocaine 2% Jelly] 1 ml .XX TID PRN #60 ml 10/05/20 [Rx] Cyclopentolate [Cyclopentolate 1% Opth Soln] 2 ml .XX ASDIRECTED 11/02/20 [History] Erythromycin Base [Erythromycin 0.5% Ophth Oint] 1 applic OP Q4H 11/02/20 [History] Hydrocodone/Acetaminophen [HYDROcodone-Acetaminophen 7.5-325 MG] 1 tab PO ASDIRECTED 11/02/20 [History] Timolol Maleate 5 ml OP ASDIRECTED 11/02/20 [History] prednisoLONE acetate [Pred Forte 1% Ophth Susp] 1 ml EYELF ATDISCHARGE 11/02/20 [History] Past Medical History - Past Health History Medical/Surgical History: Denies Medical/Surgical History HEENT History: Reports: Hard of Hearing, Impaired Vision Other HEENT History: states near sighted, wears glasses at times Cardiovascular History: Reports: None Respiratory History: Reports: None, Sleep Apnea Gastrointestinal History: Reports: None Genitourinary History: Reports: None Musculoskeletal History: Reports: None Neurological History: Reports: Migraines Psychiatric History: Reports: None Endocrine/Metabolic History: Reports: None Other Endocrine/Metabolic History: has had hypoglycemia at times Hematologic History: Reports: None Immunologic History: Reports: None Oncologic (Cancer) History: Reports: None Dermatologic History: Reports: None - Infectious Disease History Infectious Disease History: Reports: None - Past Surgical History Head Surgeries/Procedures: Reports: None HEENT Surgical History: Reports: Detached Retina Social & Family History - Family History Family Medical History: No Pertinent Family History - Tobacco Use Tobacco Use Status *Q: Never Tobacco User - Caffeine Use Caffeine Use: Reports: Soda - Recreational Drug Use Recreational Drug Use: No - Living Situation & Occupation Living situation: Reports: with Significant Other Occupation: Employed Review of Systems - Review of Systems Review Of Systems: Comprehensive ROS is negative, except as noted in HPI. ED EXAM, GENERAL - Physical Exam Exam: See Below Exam Limited By: No Limitations General Appearance: Alert, Mild Distress Eye Exam: Bilateral Eye: EOMI, PERRL Ears: Normal External Exam Nose: Normal Inspection Throat/Mouth: Normal Inspection Head: Atraumatic, Normocephalic Neck: Normal Inspection Respiratory/Chest: No Respiratory Distress, Lungs Clear, Normal Breath Sounds Cardiovascular: Regular Rate, Rhythm GI/Abdominal: Normal Bowel Sounds Back Exam: Normal Inspection. No: CVA Tenderness (L), CVA Tenderness (R) Extremities: Normal Inspection Neurological: Alert, Oriented, CN II-XII Intact Psychiatric: Normal Mood Skin Exam: Warm, Dry, Intact, Normal Color, No Rash. No: Erythema Course - Vital Signs Last Recorded V/S: Last Vital Signs Temp 97.8 F 11/21/20 23:17 Pulse 72 11/21/20 23:17 Resp 16 11/21/20 21:34 BP 135/97 H 11/21/20 23:17 Pulse Ox 100 11/21/20 23:17 - Orders/Labs/Meds Meds: Medications Discontinued Medications Generic Name Dose Route Start Last Admin Trade Name Yane PRN Reason Stop Dose Admin Ketorolac Tromethamine 30 mg 11/21/20 21:59 11/21/20 22:09 Ketorolac 30 Mg/Ml Sdv IM 11/21/20 22:00 30 mg ONETIME ONE Administration Departure - Departure Time of Disposition: 22:00 Disposition: Home, Self-Care 01 Condition: Good Clinical Impression: Pinched thoracic nerve root, Muscle spasm - Discharge Information *PRESCRIPTION DRUG MONITORING PROGRAM REVIEWED*: No *COPY OF PRESCRIPTION DRUG MONITORING REPORT IN PATIENT MANJU: No Instructions: Pinched Nerve, Shoulder Pain, [id number] Referrals: PCP,None [Primary Care Provider] - Forms: ED Department Discharge Additional Instructions: ice sling for support alternate tylenol 500mg and ibuprofen 600mg every 4 hours as needed Clinic Tuesday or Tuesday Sepsis Event Note (ED) - Evaluation Sepsis Screening Result: No Definite Risk
[2020-11-21 23:20] VITALS: BP 135/97; PULSE 72
== END 2020-11-21 23:18 | disposition home or self-care (01) ==
LOC: DL.ED 21:21
DX: M62.838 Other muscle spasm (principal)
CPT/HCPCS: 96372; 99283; J1885

== ENCOUNTER 2021-01-12 20:34 | Emergency (ER) | payer OTHER ==
[2021-01-12 20:54] VITALS: BP 140/85; PULSE 85
[2021-01-12] MEDS ORDERED: Doxycycline Monohydrate 100 MG Cap PO ONE (21:03)
[2021-01-12] MEDS ORDERED: cefTRIAXone 500 MG, Lidocaine 1% 1 ML IM ONE ×2 (21:04)
[2021-01-12] MEDS ORDERED: metroNIDAZOLE 250 MG Tab PO ONE (21:06)
--- NOTE | 2021-01-12 21:18 | EDM.PDOC ---
ED HPI GENERAL MEDICAL PROBLEM - General Chief Complaint: Genitourinary Problem Stated Complaint: NEEDS TO BE TESTED FOR STD Time Seen by Provider: 01/12/21 21:00 Source of Information: Reports: Patient, RN, RN Notes Reviewed History Limitations: Reports: No Limitations - History of Present Illness INITIAL COMMENTS - FREE TEXT/NARRATIVE: Evens is a 50 y/o male who presents to the ED via personal vehicle with complaints of a lesion on his penis. The patient reports he was told by his she tested positive for chlamydia and suggested he be tested as well. The patient noted a 2mm vesicular lesion on the shaft of his penis this morning while showering. He notes pain to the area, but no other lesions as present. He denies fever, shaking chills, abdominal pain, dysuria, hematuria, penile discharge, or inability to urinate. He attest to a history of STD, including trichomoniasis. - Related Data Allergies Allergy/AdvReac Type Severity Reaction Status Date / Time No Known Allergies Allergy Verified 11/02/20 09:29 Home Meds: Home Meds Hydrocortisone [Anusol-HC] 30 gm RC BID #30 cream..g. 10/05/20 [Rx] Lidocaine 2% [Xylocaine 2% Jelly] 1 ml .XX TID PRN #60 ml 10/05/20 [Rx] Cyclopentolate [Cyclopentolate 1% Opth Soln] 2 ml .XX ASDIRECTED 11/02/20 [History] Erythromycin Base [Erythromycin 0.5% Ophth Oint] 1 applic OP Q4H 11/02/20 [History] Hydrocodone/Acetaminophen [HYDROcodone-Acetaminophen 7.5-325 MG] 1 tab PO ASDIRECTED 11/02/20 [History] Timolol Maleate 5 ml OP ASDIRECTED 11/02/20 [History] prednisoLONE acetate [Pred Forte 1% Ophth Susp] 1 ml EYELF ATDISCHARGE 11/02/20 [History] Past Medical History - Past Health History Medical/Surgical History: Denies Medical/Surgical History HEENT History: Reports: Hard of Hearing, Impaired Vision Other HEENT History: states near sighted, wears glasses at times Cardiovascular History: Reports: None Respiratory History: Reports: None, Sleep Apnea Gastrointestinal History: Reports: None Genitourinary History: Reports: None Musculoskeletal History: Reports: None Neurological History: Reports: Migraines Psychiatric History: Reports: None Endocrine/Metabolic History: Reports: None Other Endocrine/Metabolic History: has had hypoglycemia at times Hematologic History: Reports: None Immunologic History: Reports: None Oncologic (Cancer) History: Reports: None Dermatologic History: Reports: None - Infectious Disease History Infectious Disease History: Reports: None - Past Surgical History Head Surgeries/Procedures: Reports: None HEENT Surgical History: Reports: Detached Retina Social & Family History - Family History Family Medical History: No Pertinent Family History - Tobacco Use Tobacco Use Status *Q: Never Tobacco User - Caffeine Use Caffeine Use: Reports: None - Alcohol Use Days Per Week of Alcohol Use: 2 Number of Drinks Per Day: 6 Total Drinks Per Week: 12 - Recreational Drug Use Recreational Drug Use: No - Living Situation & Occupation Living situation: Reports: with Significant Other Occupation: Employed ED ROS GENERAL - Review of Systems Review Of Systems: Comprehensive ROS is negative, except as noted in HPI. ED EXAM, GI/ABD - Physical Exam Exam: See Below Exam Limited By: No Limitations General Appearance: Alert, No Apparent Distress Eyes: Bilateral: Normal Appearance, EOMI Ears: Normal External Exam, Hearing Grossly Normal Nose: Normal Inspection, No Blood Throat/Mouth: Normal Inspection, Normal Oropharynx, Normal Voice, No Airway Compromise Head: Atraumatic, Normocephalic Neck: Normal Inspection, Full Range of Motion Respiratory/Chest: No Respiratory Distress, Lungs Clear, Normal Breath Sounds, No Accessory Muscle Use, Chest Non-Tender Cardiovascular: Normal Peripheral Pulses, Regular Rate, Rhythm, No Gallop, No Murmur, No Rub GI/Abdominal Exam: Normal Bowel Sounds, Soft, Non-Tender, No Distention, No A bnormal Bruit, No Mass, Pelvis Stable. No: Guarding, Rigid, Rebound (Male) Exam: No Hernia, Penile Lesions (Singular vesicular lesions to left proximal penile shaft). No: Circumcised, Scrotal Swelling, Scrotum Tenderness (L), Scrotum Tenderness (R), Suprapubic Fullness, Testicular Tenderness (L), Testicular Tenderness (R), Urethral Discharge Rectal (Males) Exam: No: Deferred Back Exam: Normal Inspection, Full Range of Motion. No: CVA Tenderness (L), CVA Tenderness (R) Extremities: Normal Inspection, Normal Range of Motion Neurological: Oriented, CN II-XII Intact, Normal Cognition, Normal Gait, No Motor/Sensory Deficits Psychiatric: Normal Affect, Normal Mood Skin Exam: Warm, Dry, Normal Color, Wound/Incision (See above). No: Cyanosis, Ecchymosis, Erythema, Jaundice, Mottled, Pallor, Petechiae Course - Vital Signs Last Recorded V/S: Last Vital Signs Temp 98.1 F 01/12/21 20:48 Pulse 85 01/12/21 20:48 Resp 16 01/12/21 20:48 BP 140/85 01/12/21 20:48 Pulse Ox 100 01/12/21 20:48 - Orders/Labs/Meds Orders: Active Orders 24 hr Category Date Time Status CULTURE GENITAL [RM] Stat Lab 01/12/21 21:07 Ordered STD PANEL 3 [REF] Stat Lab 01/12/21 20:41 Ordered Labs: Laboratory Tests 01/12/21 Range/Units 20:54 Urine Color Yellow (YELLOW) Urine Appearance Slightly cloudy (CLEAR) Urine pH 6.0 (5.0-9.0) Ur Specific [place] >= 1.030 (1.005-1.030) Urine Protein Negative (NEGATIVE) Urine Glucose (UA) Negative (NEGATIVE) Urine Ketones Negative (NEGATIVE) Urine Occult Blood Negative (NEGATIVE) Urine Nitrite Negative (NEGATIVE) Urine Bilirubin Negative (NEGATIVE) Urine Urobilinogen 0.2 (0.2-1.0) mg/dL Ur Leukocyte Esterase Negative (NEGATIVE) Meds: Medications Discontinued Medications Generic Name Dose Route Start Last Admin Trade Name Freq PRN Reason Stop Dose Admin Ceftriaxone Sodium 500 mg/ 0 mg 01/12/21 21:04 01/12/21 21:15 Lidocaine HCl 1 ml IM 01/12/21 21:05 1.8 inj ONETIME ONE Administration Doxycycline Monohydrate 100 mg 01/12/21 21:03 01/12/21 21:14 Doxycycline Monohydrate 100 Mg Cap PO 01/12/21 21:04 100 mg ONETIME ONE Administration Metronidazole 2,000 mg 01/12/21 21:06 01/12/21 21:15 Metronidazole 250 Mg Tab PO 01/12/21 21:07 2,000 mg ONETIME ONE Administration - Re-Assessments/Exams Free Text/Narrative Re-Assessment/Exam: 01/12/21 STD panel and wound culture of penile lesion sent. Patient treated empirically with Rocephin 500mg IM, Doxycycline 100mg PO, and Metronidazole 2gm. Patient informed of the send-out nature of the tests performed and notified he will be contacted by infectious disease RN regarding his results. Red flag signs and symptoms which would warrant reevaluation reviewed. Patient verbalized understanding and agreement with the plan of care. Departure - Departure Time of Disposition: 21:15 Disposition: Home, Self-Care 01 Condition: Good Clinical Impression: Exposure to sexually transmitted disease (STD), Penile lesion - Discharge Information *PRESCRIPTION DRUG MONITORING PROGRAM REVIEWED*: Not Applicable *COPY OF PRESCRIPTION DRUG MONITORING REPORT IN PATIENT MANJU: Not Applicable Instructions: Sexually Transmitted Disease, [id number] Forms: ED Department Discharge Additional Instructions: Rx: doxycycline 1.) Take all of your antibiotic until gone, unless otherwise instructed to stop via infectious disease nurse. 2.) Eat food with your antibiotic, consider eating a yogurt daily to help with gastrointestinal effects of the medication. 3.) Refrain from sexual intercourse until your antibiotic course is complete. 4.) The infectious disease nurse will be in contact with you regarding your test results in 2-3 days. 5.) Follow up with your primary care provider regarding today's visit. Sepsis Event Note (ED) - Focused Exam Vital Signs: Vital Signs Temp Pulse Resp BP Pulse Ox 01/12/21 20:48 98.1 F 85 16 140/85 100 - My Orders Last 24 Hours: My Active Orders 01/12/21 20:41 STD PANEL 3 [REF] Stat 01/12/21 21:07 CULTURE GENITAL [RM] Stat - Assessment/Plan Last 24 Hours: My Active Orders 01/12/21 20:41 STD PANEL 3 [REF] Stat 01/12/21 21:07 CULTURE GENITAL [RM] Stat
[2021-01-14 12:47] LABS: C.TRACHOMATIS BY TMA Positive (Negative); N.GONORRHOEAE BY TMA Negative (Negative)
== END 2021-01-12 21:30 | disposition home or self-care (01) ==
LOC: DL.ED 20:34
DX: N48.89 Other specified disorders of penis (principal); Z20.2 Contact with and (suspected) exposure to infections with a predominantly sexual mode of transmission
CPT/HCPCS: 36415; 81003; 87252; 87491; 87563; 87591; 96372; 99283; A9270; J0696

== ENCOUNTER 2021-01-19 09:25 | Emergency (ER) | payer OTHER ==
[2021-01-19 11:17] VITALS: BP 139/105; PULSE 74
--- NOTE | 2021-01-19 11:33 | CR ---
EXAMINATION: Hand Comp Min 3V Rt SEX: Male AGE: 50 years CLINICAL HISTORY: 50-year-old male injured at work ("lid" fell on right hand). Comparison 10 May 2016. Interpretation: Homogeneous normal bone mineral density. No sign of right hand or wrist fracture/dislocation. No arthritic degenerative changes. No foreign bodies.
--- NOTE | 2021-01-19 11:50 | EDM.PDOC ---
ED HPI GENERAL MEDICAL PROBLEM - General Chief Complaint: Upper Extremity Injury/Pain Stated Complaint: [id number] LID LANDED ON THUMB AT WORK Time Seen by Provider: 01/19/21 11:30 Source of Information: Reports: Patient History Limitations: Reports: No Limitations - History of Present Illness INITIAL COMMENTS - FREE TEXT/NARRATIVE: 50 y/o M pt states his R thumb was pinched between a cart railing and a 50lb lid at work. C/o pn on R thumb pn. No other complaints, no meds, hx allergies. Injury happened at work this morning. Right Finger-Thumb Pain Score (Numeric/FACES): 5 - Related Data Allergies Allergy/AdvReac Type Severity Reaction Status Date / Time No Known Allergies Allergy Verified 11/02/20 09:29 Home Meds: Home Meds Hydrocortisone [Anusol-HC] 30 gm RC BID #30 cream..g. 10/05/20 [Rx] Lidocaine 2% [Xylocaine 2% Jelly] 1 ml .XX TID PRN #60 ml 10/05/20 [Rx] Cyclopentolate [Cyclopentolate 1% Opth Soln] 2 ml .XX ASDIRECTED 11/02/20 [History] Erythromycin Base [Erythromycin 0.5% Ophth Oint] 1 applic OP Q4H 11/02/20 [History] Hydrocodone/Acetaminophen [HYDROcodone-Acetaminophen 7.5-325 MG] 1 tab PO ASDIRECTED 11/02/20 [History] Timolol Maleate 5 ml OP ASDIRECTED 11/02/20 [History] prednisoLONE acetate [Pred Forte 1% Ophth Susp] 1 ml EYELF ATDISCHARGE 11/02/20 [History] Past Medical History - Past Health History Medical/Surgical History: Denies Medical/Surgical History HEENT History: Reports: Hard of Hearing, Impaired Vision Other HEENT History: states near sighted, wears glasses at times Cardiovascular History: Reports: None Respiratory History: Reports: Sleep Apnea Gastrointestinal History: Reports: None Genitourinary History: Reports: None Musculoskeletal History: Reports: None Neurological History: Reports: Migraines Psychiatric History: Reports: None Endocrine/Metabolic History: Reports: None Other Endocrine/Metabolic History: has had hypoglycemia at times Hematologic History: Reports: None Immunologic History: Reports: None Oncologic (Cancer) History: Reports: None Dermatologic History: Reports: None - Infectious Disease History Infectious Disease History: Reports: None - Past Surgical History Head Surgeries/Procedures: Reports: None HEENT Surgical History: Reports: Detached Retina Social & Family History - Family History Family Medical History: No Pertinent Family History - Tobacco Use Tobacco Use Status *Q: Never Tobacco User - Caffeine Use Caffeine Use: Reports: Soda - Recreational Drug Use Recreational Drug Use: No - Living Situation & Occupation Living situation: Reports: with Significant Other Occupation: Employed Review of Systems - Review of Systems Review Of Systems: Comprehensive ROS is negative, except as noted in HPI. ED EXAM, GENERAL - Physical Exam Exam: See Below General Appearance: Alert, No Apparent Distress Respiratory/Chest: No Respiratory Distress, Lungs Clear, Normal Breath Sounds, No Accessory Muscle Use, Chest Non-Tender Cardiovascular: Normal Peripheral Pulses, Regular Rate, Rhythm, No Edema, No Gallop, No JVD, No Murmur, No Rub Extremities: Other (tenderness over R thumb with no obvious deformity cms intact) Course - Vital Signs Last Recorded V/S: Last Vital Signs Temp 97.6 F 01/19/21 11:13 Pulse 74 01/19/21 11:13 Resp 18 01/19/21 11:13 BP 139/105 H 01/19/21 11:13 Pulse Ox 97 01/19/21 11:13 Departure - Departure Time of Disposition: 11:48 Disposition: Home, Self-Care 01 Condition: Good Clinical Impression: Injury, thumb Qualifiers: Encounter type: initial encounter Laterality: right Qualified Code(s): S69.91XA - Unspecified injury of right wrist, hand and finger(s), initial encounter - Discharge Information *PRESCRIPTION DRUG MONITORING PROGRAM REVIEWED*: Not Applicable *COPY OF PRESCRIPTION DRUG MONITORING REPORT IN PATIENT MANJU: Not Applicable Instructions: Thumb Sprain Additional Instructions: Ice and rest your injury. Use Tylenol and motrin for pain as needed. Sepsis Event Note (ED) - Focused Exam Vital Signs: Vital Signs Temp Pulse Resp BP Pulse Ox 01/19/21 11:13 97.6 F 74 18 139/105 H 97
== END 2021-01-19 11:54 | disposition home or self-care (01) ==
LOC: DL.ED 09:25
DX: S69.91XA Unspecified injury of right wrist, hand and finger(s), initial encounter (principal); W23.0XXA Caught, crushed, jammed, or pinched between moving objects, initial encounter; Y92.89 Other specified places as the place of occurrence of the external cause; Y99.0 Civilian activity done for income or pay
CPT/HCPCS: 73130-RT; 99283-25

== ENCOUNTER 2021-05-07 17:36 | Emergency (ER) | payer OTHER ==
[2021-05-07 19:10] VITALS: BP 136/105; PULSE 86
[2021-05-07] MEDS ORDERED: Doxycycline Monohydrate 100 MG Cap ONE (20:14)
[2021-05-07] MEDS ORDERED: Mupirocin Oint 22 GM Tube ONE (20:14)
[2021-05-11 11:48] LABS: C.TRACHOMATIS BY TMA Negative (Negative); N.GONORRHOEAE BY TMA Negative (Negative)
== END 2021-05-07 20:27 | disposition home or self-care (01) ==
LOC: DL.ED 17:36
DX: N48.89 Other specified disorders of penis (principal)
CPT/HCPCS: 81003; 87491; 87591; 99283; A9270

== ENCOUNTER 2021-07-01 08:59 | Day surgery (SDC) | payer OTHER ==
[~2021-07-01 08:59] MED LIST: Acetaminophen 325 MG Tab PO PRN; Acetaminophen/Codeine 300-30 MG Tab PO PRN; Cataract Ophth Solution EYELF ONE; Moxifloxacin 0.5% Ophth Soln 3 ML Bottle EYELF ONE; Ondansetron 4 MG/2 ML SDV IVPUSH PRN; Phenylephrine 10% Ophth Soln 5 ML Bot EYELF ONE; Povidone-Iodine 5% Sterile Ophth Soln 30 ML Bottle EYELF ONE; Proparacaine 0.5% Ophth Soln 15 ML Bottle EYELF ONE; Sodium Chloride 0.9% 10 ML Syringe FLUSH PRN; Timolol Maleate 0.5% Ophth Soln 5 ML Bottle EYELF ONE; Tropicamide 1% Ophth Soln 15 ML Bottle EYELF ONE
[2021-07-01] MEDS ORDERED: Midazolam 1 MG/ML 2 ML SDV IV ONE (09:00)
[2021-07-01] MEDS ORDERED: Moxifloxacin 0.5% Ophth Soln 3 ML Bottle EYELF ONE (09:00)
[2021-07-01] MEDS ORDERED: Acetaminophen/Codeine 300-30 MG Tab PO PRN (09:00)
[2021-07-01] MEDS ORDERED: Povidone-Iodine 5% Sterile Ophth Soln 30 ML Bottle EYELF ONE ×2 (09:00→10:01)
[2021-07-01] MEDS ORDERED: Ondansetron 4 MG/2 ML SDV IVPUSH PRN (09:00)
[2021-07-01] MEDS ORDERED: Phenylephrine 10% Ophth Soln 5 ML Bot EYELF PRN (09:00)
[2021-07-01] MEDS ORDERED: Tobramycin 0.3% Ophth Drops 5 ML Bottle EYELF ONE (09:00)
[2021-07-01] MEDS ORDERED: Timolol Maleate 0.5% Ophth Soln 5 ML Bottle EYELF ONE (09:00)
[2021-07-01] MEDS ORDERED: Acetaminophen 325 MG Tab PO PRN (09:00)
[2021-07-01] MEDS ORDERED: Proparacaine 0.5% Ophth Soln 15 ML Bottle EYELF ONE (09:00)
[2021-07-01] MEDS ORDERED: Cataract Ophth Solution EYELF ONE (09:00)
[2021-07-01] MEDS ORDERED: Tropicamide 1% Ophth Soln 15 ML Bottle EYELF ONE (09:00)
[2021-07-01] MEDS ORDERED: Dexamethasone 4 MG/ML SDV IV ONE (09:00)
[2021-07-01] MEDS ORDERED: Lidocaine 1% 30 ML SDV ONE (10:00)
[2021-07-01] MEDS ORDERED: Tetracaine HCl/PF 0.5% 4 ML Bottle EYELF ONE (10:00)
[2021-07-01] MEDS ORDERED: Apraclonidine 0.5% Ophth Soln 5 ML Bot EYELF ONE (10:01)
[2021-07-01] MEDS ORDERED: Diclofenac Sodium 0.1% Ophth Soln 5 ML Bottle EYELF ONE (10:01)
[2021-07-01] MEDS ORDERED: Dexamethasone/Neomycin/Polymyxin B Ophth Oint 3.5 GM Tube EYELF ONE (10:01)
[2021-07-01] MEDS ORDERED: Vancomycin 500 MG SDV EYELF ONE (10:02)
[2021-07-01] MEDS ORDERED: Chondroitin Sulfate/Hyaluronate Sodium Ophth Inj 0.75 ML Syringe EYELF ONE (10:02)
[2021-07-01] MEDS ORDERED: Balanced Salt Solution Ophth Irrig 500 ML Bottle IOCULAR ONE (10:02)
[2021-07-01 11:27] VITALS: BP 123/83; PULSE 63
== END 2021-07-01 11:38 | disposition home or self-care (01) ==
LOC: DL.SDS 08:59
PROVIDERS: ATTEND Ophthalmology
DX: H25.812 Combined forms of age-related cataract, left eye (principal); Z01.812 Encounter for preprocedural laboratory examination; Z20.822 Contact with and (suspected) exposure to COVID-19
CPT/HCPCS: 00142; A9270-GY; J1100; J2250; J3370; U0002; V2632

== ENCOUNTER 2021-07-15 07:19 | Day surgery (SDC) | payer OTHER ==
[2021-07-15] MEDS ORDERED: Midazolam 1 MG/ML 2 ML SDV IV ONE (07:20)
[2021-07-15] MEDS ORDERED: Dexamethasone 4 MG/ML SDV IV ONE (07:20)
[2021-07-15] MEDS ORDERED: Sodium Chloride 0.9% 10 ML Syringe IV ONE (07:20)
[2021-07-15] MEDS ORDERED: Tropicamide 1% Ophth Soln 15 ML Bottle EYERT ONE (07:30)
[2021-07-15] MEDS ORDERED: Povidone-Iodine 5% Sterile Ophth Soln 30 ML Bottle EYERT ONE ×2 (07:30→08:53)
[2021-07-15] MEDS ORDERED: Acetaminophen 325 MG Tab PO PRN (07:30)
[2021-07-15] MEDS ORDERED: Timolol Maleate 0.5% Ophth Soln 5 ML Bottle EYERT ONE (07:30)
[2021-07-15] MEDS ORDERED: Proparacaine 0.5% Ophth Soln 15 ML Bottle EYERT ONE (07:30)
[2021-07-15] MEDS ORDERED: Acetaminophen/Codeine 300-30 MG Tab PO PRN (07:30)
[2021-07-15] MEDS ORDERED: Cataract Ophth Solution EYERT ONE (07:30)
[2021-07-15] MEDS ORDERED: Sodium Chloride 0.9% 10 ML Syringe FLUSH PRN (07:30)
[2021-07-15] MEDS ORDERED: Ondansetron 4 MG/2 ML SDV IVPUSH PRN (07:30)
[2021-07-15] MEDS ORDERED: Phenylephrine 10% Ophth Soln 5 ML Bot EYERT ONE (07:30)
[2021-07-15] MEDS ORDERED: Moxifloxacin 0.5% Ophth Soln 3 ML Bottle EYERT ONE (07:30)
[2021-07-15] MEDS ORDERED: Tetracaine HCl/PF 0.5% 4 ML Bottle EYERT ONE (08:52)
[2021-07-15] MEDS ORDERED: Apraclonidine 0.5% Ophth Soln 5 ML Bot EYERT ONE (08:53)
[2021-07-15] MEDS ORDERED: Lidocaine 1% 30 ML SDV ONE (08:53)
[2021-07-15] MEDS ORDERED: Dexamethasone/Neomycin/Polymyxin B Ophth Oint 3.5 GM Tube EYERT ONE (08:54)
[2021-07-15] MEDS ORDERED: Diclofenac Sodium 0.1% Ophth Soln 5 ML Bottle EYERT ONE (08:54)
[2021-07-15] MEDS ORDERED: Vancomycin 500 MG SDV EYERT ONE (08:54)
[2021-07-15] MEDS ORDERED: Balanced Salt Solution Ophth Irrig 500 ML Bottle IOCULAR ONE (08:54)
[2021-07-15] MEDS ORDERED: Chondroitin Sulfate/Hyaluronate Sodium Ophth Inj 0.75 ML Syringe EYERT ONE (08:55)
[2021-07-15 09:53] VITALS: BP 130/87; PULSE 85
== END 2021-07-15 10:03 | disposition home or self-care (01) ==
LOC: DL.SDS 07:19
PROVIDERS: ATTEND Ophthalmology
DX: H25.811 Combined forms of age-related cataract, right eye (principal); E66.9 Obesity, unspecified; Z68.34 Body mass index [BMI] 34.0-34.9, adult; Z01.812 Encounter for preprocedural laboratory examination; Z20.822 Contact with and (suspected) exposure to COVID-19
CPT/HCPCS: 66984; 87635; A9270; J1100; J2250; J3370; J3490; V2632; 00142; U0002

== ENCOUNTER 2023-01-16 12:04 | Emergency (ER) | payer OTHER ==
[2023-01-16 12:44] VITALS: BP 135/104; PULSE 89
== END 2023-01-16 13:14 | disposition home or self-care (01) ==
LOC: DL.ED 12:04
DX: S60.141A Contusion of right ring finger with damage to nail, initial encounter (principal); Z79.899 Other long term (current) drug therapy; W20.8XXA Other cause of strike by thrown, projected or falling object, initial encounter
CPT/HCPCS: 73130-LT; 99282; 99283

== ENCOUNTER 2023-02-26 21:04 | Emergency (ER) | payer OTHER ==
[2023-02-26 21:29] VITALS: BP 155/88; PULSE 74
[2023-02-26] MEDS ORDERED: Bupivacaine 0.5%/EPINEPHrine 1:200,000 10 ML SDV INJECT ONE (22:13)
[2023-02-26] MEDS ORDERED: Amoxicillin/Clavulanate K 875-125 MG Tab PO ONE (22:14)
[2023-02-26] MEDS ORDERED: Take Home: Amoxicillin/Clavulanate K 875-125 MG Tab, 6 Tab Pack PO ONE (22:15)
[2023-02-26] MEDS ORDERED: Ketorolac 30 MG/ML SDV IM ONE (22:17)
[2023-02-26] MEDS ORDERED: Bupivacaine 0.25% 10 ML SDV INJECT ONE (22:20)
== END 2023-02-26 23:10 | disposition home or self-care (01) ==
LOC: DL.ED 21:04
DX: K04.7 Periapical abscess without sinus (principal); K02.9 Dental caries, unspecified; K03.81 Cracked tooth; E78.00 Pure hypercholesterolemia, unspecified; E66.9 Obesity, unspecified; Z79.899 Other long term (current) drug therapy; Z68.34 Body mass index [BMI] 34.0-34.9, adult
CPT/HCPCS: 64400; 96372; 99282; A9270-GY; J1885; J3490

== ENCOUNTER 2023-07-16 20:45 | Emergency (ER) | payer OTHER ==
[2023-07-16] MEDS: Ketorolac 30 MG/ML SDV IM ONE (22:32)
[2023-07-16 23:19] VITALS: BP 125/81; PULSE 89
== END 2023-07-16 23:15 | disposition home or self-care (01) ==
LOC: DL.ED 20:45
DX: M25.511 Pain in right shoulder (principal); E66.9 Obesity, unspecified; Z68.34 Body mass index [BMI] 34.0-34.9, adult
CPT/HCPCS: 73030; 96372; 99283; J1885

== ENCOUNTER 2023-08-26 01:16 | Emergency (ER) | payer OTHER ==
[2023-08-26 01:33] VITALS: PULSE 83
[2023-08-26] MEDS: Mineral Oil/Petrolatum/Phenylephrine/Shark Liver Oil Oint 57 GM Tube RECTAL ONE (01:42)
[2023-08-26 01:49] VITALS: BP 141/95
== END 2023-08-26 01:46 | disposition home or self-care (01) ==
LOC: DL.ED 01:16
DX: K64.4 Residual hemorrhoidal skin tags (principal); Z79.899 Other long term (current) drug therapy; E66.9 Obesity, unspecified; Z68.37 Body mass index [BMI] 37.0-37.9, adult
CPT/HCPCS: 99283; A9270

== ENCOUNTER 2023-09-02 06:45 | Day surgery (SDC) | payer OTHER ==
[~2023-09-02 06:45] MED LIST changes: -Acetaminophen 325 MG Tab PO PRN; -Acetaminophen/Codeine 300-30 MG Tab PO PRN; -Cataract Ophth Solution EYELF ONE; +Midazolam 1 MG/ML 2 ML SDV ONE; -Moxifloxacin 0.5% Ophth Soln 3 ML Bottle EYELF ONE; -Ondansetron 4 MG/2 ML SDV IVPUSH PRN; -Phenylephrine 10% Ophth Soln 5 ML Bot EYELF ONE; -Povidone-Iodine 5% Sterile Ophth Soln 30 ML Bottle EYELF ONE; -Proparacaine 0.5% Ophth Soln 15 ML Bottle EYELF ONE; -Sodium Chloride 0.9% 10 ML Syringe FLUSH PRN; -Timolol Maleate 0.5% Ophth Soln 5 ML Bottle EYELF ONE; -Tropicamide 1% Ophth Soln 15 ML Bottle EYELF ONE; +fentaNYL 100 MCG/2 ML SDV ONE
[2023-09-02] MEDS ORDERED: Midazolam 1 MG/ML 2 ML SDV IV ONE (06:46)
[2023-09-02] MEDS ORDERED: fentaNYL 100 MCG/2 ML SDV IV ONE (06:46)
[2023-09-02] MEDS: Dextrose 5%-0.45% NaCl 1,000 ML IV SCH (07:45)
[2023-09-02] MEDS: fentaNYL 100 MCG/2 ML SDV IV ONE ×4 (08:29→08:41)
[2023-09-02] MEDS: Midazolam 1 MG/ML 2 ML SDV IV ONE ×6 (08:30→08:35)
[2023-09-02 09:50] VITALS: BP 121/92; PULSE 78
== END 2023-09-02 10:24 | disposition home or self-care (01) ==
LOC: DL.ENDO 06:45
PROVIDERS: ATTEND Internal Medicine Gastroenterology
DX: Z12.11 Encounter for screening for malignant neoplasm of colon (principal); K62.1 Rectal polyp; K64.4 Residual hemorrhoidal skin tags; G47.30 Sleep apnea, unspecified; E66.09 Other obesity due to excess calories; Z68.35 Body mass index [BMI] 35.0-35.9, adult
CPT/HCPCS: 45385; J2250; J3010; J7042

== ENCOUNTER 2024-10-31 20:15 | Emergency (ER) | payer OTHER ==
[2024-10-31 20:31] VITALS: BP 136/82; PULSE 80
[2024-10-31] MEDS: Ketorolac 30 MG/ML SDV IM ONE (20:44)
== END 2024-10-31 20:57 | disposition home or self-care (01) ==
LOC: DL.ED 20:15
DX: M79.675 Pain in left toe(s) (principal); E66.9 Obesity, unspecified; Z91.011 Allergy to milk products; Z79.1 Long term (current) use of non-steroidal anti-inflammatories (NSAID); Z79.899 Other long term (current) drug therapy; Z68.34 Body mass index [BMI] 34.0-34.9, adult; W22.8XXA Striking against or struck by other objects, initial encounter; Y93.01 Activity, walking, marching and hiking
CPT/HCPCS: 73660; 96372; 99283; J1885

== ENCOUNTER 2025-03-09 15:15 | Emergency (ER) | payer OTHER ==
[2025-03-09] MEDS: Ketorolac 30 MG/ML SDV IVPUSH ONE (15:51)
[2025-03-09 15:56] LABS: BASOPHILS PERCENT AUTO 0.2 % (0.0-1.0); EOSINOPHILS PERCENT AUTO 0.2 % (1.0-3.0); LYMPHOCYTES PERCENT AUTO 9.0 % (20.5-50.1); MONOCYTES PERCENT AUTO 11.1 % (2-8); NEUTROPHILS PERCENT AUTO 79.5 % (42.2-75.2); PLATELET COUNT,PLT 267 10^3/uL (150-450); RED BLOOD CELL COUNT 5.16 10^6/uL (4.6-6.2); WHITE BLOOD CELL COUNT,WBC 10.7 10^3/uL (5.0-10.0)
[2025-03-09 16:17] LABS: A/G RATIO 0.8; ALANINE AMINOTRANSFERASE,ALT 14.0 U/L (16-63); ASPARTATE AMNIOTRANSFERASE,AST 9.0 U/L (15-37); BILIRUBIN TOTAL 0.4 mg/dL (0.2-1.0); BLOOD UREA NITROGEN,BUN 10.0 mg/dL (7-18); CARBON DIOXIDE,CO2 24.0 mmol/L (21-32); CHLORIDE,CL 105.0 mmol/L (98-107); CREATININE 1.17 mg/dL (0.70-1.30); EST CRCL DRUG DOSING (CG) 83.92 mL/min; GLUCOSE RANDOM 102.0 mg/dL (70-99); POTASSIUM,K 3.7 mmol/L (3.5-5.1); PROTEIN TOTAL,TP 7.5 g/dL (6.4-8.2); SODIUM,NA 141.0 mmol/L (136-145)
[2025-03-09 16:20] LABS: LACTIC ACID 1.3 mmol/L (0.4-2.0)
[2025-03-09 16:23] LABS: ESTIMATED GFR 74.0 mL/min (>=60)
[2025-03-09 17:07] VITALS: BP 116/85; PULSE 87
== END 2025-03-09 17:30 | disposition home or self-care (01) ==
LOC: DL.ED 15:15
DX: J11.1 Influenza due to unidentified influenza virus with other respiratory manifestations (principal); E86.0 Dehydration; E66.9 Obesity, unspecified; Z88.8 Allergy status to other drugs, medicaments and biological substances; Z79.899 Other long term (current) drug therapy; Z68.32 Body mass index [BMI] 32.0-32.9, adult
CPT/HCPCS: 36415; 80053; 83605; 83735; 85025; 96361; 96374; 99283; 99284; J1885; J7030